=== PATIENT | male | born 1940 | race Caucasian/White ===

== ENCOUNTER 2017-01-24 08:51 | Inpatient (IN) | payer MEDICARE, OTHER ==
[2017-01-24] VITALS (58 sets, daily range): BP systolic 100–139; BP diastolic 51–99; PULSE 91–107; TEMP 97.6–103.1; O2SAT 75–97
[~2017-01-24] VITALS: Ht 175.3 cm; Wt 108.2 kg
[~2017-01-24 08:51] MED LIST: ACULAR LS 5 ML5 ML; ALEVE 220MG220 MG PO; ASPIRIN 81M81 MG/TA2 PO; CATAPRES 0.1MG0.1 MG PO; CLARITIN 1010 MG/TAB PO; CLARITIN PO; COLACE50 MG PO; COZAAR 25MG25 MG/TAB PO; GLUCOPHAGE500 MG/TAB PO; HCTZ 25MG TAB25 MG PO; MUCINEX 60600 MG/TA1 PO; OCUFLOX OPHTH DR5 ML; PRED FORTE 1 ML1 ML; TEARS NATURALE15 M1; TRIAMTERENE W/H1 CAP PO; VITAMIN D31000 I1 PO
[2017-01-24] MEDS ORDERED: ULTRAM 50MG TAB50 MG PO (08:54)
[2017-01-24 09:29] LABS: HEMATOCRIT 38.9 % (42.0-52.0); MEAN CELL VOLUME 92 fl (80.0-100.0); MEAN CORPUSCULAR HEMOGLOBIN 31 pg (27.0-31.0); MEAN CORPUSCULAR HGB CONC 33 g/dl (33.0-37.0); MEAN PLATELET VOLUME 9.4 fl (7.4-10.4); PLATELET COUNT 185 K/mm3 (130-400); RED BLOOD COUNT 4.24 M/mm3 (4.20-5.60); REDCELL DISTRIBUTION WIDTH-CV 13.4 % (11.5-14.5)
[2017-01-24 09:31] LABS: INR 1.3 (0.8-3.0); PROTHROMBIN TIME 14.1 SECONDS (9.7-12.8)
[2017-01-24 09:32] LABS: WHITE BLOOD COUNT 25.5 K/mm3 (4.8-10.8)
[2017-01-24 09:34] LABS: ADD PATHOLOGY DIFF REVIEW NO
[2017-01-24 09:41] LABS: ADJUSTED CALCIUM 9.1 mg/dL (8.4-10.2); ALBUMIN 4.1 gm/dL (3.5-5.0); BILIRUBIN,TOTAL 1.5 mg/dL (0.0-1.0); C-REACTIVE PROTEIN 3.8 mg/dL (0.0-0.9); CALCIUM 9.2 mg/dL (8.4-10.2); CREATININE, serum 1.03 mg/dL (0.66-1.25); POTASSIUM 4.1 mmol/L (3.4-5.0); TOTAL PROTEIN 8.1 gm/dL (6.4-8.2)
[2017-01-24 09:50] LABS: TROPONIN-I 0.017 ng/mL (0.000-0.034)
[2017-01-24 09:56] LABS: BAND 36 % (0-10); NEUTROPHILS 61 % (42.0-75.2); PLATELET ESTIMATE NORMAL (NORMAL); TOTAL CELLS COUNTED 101
[2017-01-24 23:33] LABS: PH 5 (5-8); SQUAMOUS EPITHELIAL None Seen /hpf; URINE APPEARANCE Clear; URINE BACTERIA None Seen /hpf; URINE BILIRUBIN Negative (NEGATIVE); URINE BLOOD 1+ (NEGATIVE); URINE COLOR Yellow; URINE GLUCOSE Negative (NEGATIVE); URINE KETONE 1+ (NEGATIVE); URINE UROBILINOGEN Negative (NEGATIVE); URINE WBC 0-2 /hpf
[2017-01-25] VITALS (1373 sets, daily range): BP systolic 95–132; BP diastolic 35–77; PULSE 77–98; TEMP 97.6–101.6; O2SAT 68–100
[2017-01-25 08:14] LABS: MEAN CELL VOLUME 93 fl (80.0-100.0); MEAN CORPUSCULAR HEMOGLOBIN 31 pg (27.0-31.0); MEAN CORPUSCULAR HGB CONC 33 g/dl (33.0-37.0); MEAN PLATELET VOLUME 9.4 fl (7.4-10.4); PLATELET COUNT 142 K/mm3 (130-400); RED BLOOD COUNT 3.94 M/mm3 (4.20-5.60); REDCELL DISTRIBUTION WIDTH-CV 13.7 % (11.5-14.5); WHITE BLOOD COUNT 19.8 K/mm3 (4.8-10.8)
[2017-01-25 08:19] LABS: ADD PATHOLOGY DIFF REVIEW NO; HEMATOCRIT 36.5 % (42.0-52.0)
[2017-01-25 08:20] LABS: INR 1.8 (0.8-3.0); PROTHROMBIN TIME 19.9 SECONDS (9.7-12.8)
[2017-01-25 08:23] LABS: PARTIAL THROMBOPLASTIN TIME 35.4 SECONDS (26.0-37.0)
[2017-01-25 08:30] LABS: ADJUSTED CALCIUM 8.8 mg/dL (8.4-10.2); CREATININE, serum 0.84 mg/dL (0.66-1.25); POTASSIUM 3.4 mmol/L (3.4-5.0); TOTAL PROTEIN 6.7 gm/dL (6.4-8.2)
[2017-01-25 08:58] LABS: C-REACTIVE PROTEIN 23.9 mg/dL (0.0-0.9)
[2017-01-25 10:18] LABS: BAND 20 % (0-10); BASOPHIL 1 % (0-2); NEUTROPHILS 70 % (42.0-75.2); PLATELET ESTIMATE NORMAL (NORMAL); TOTAL CELLS COUNTED 100
[2017-01-25 10:20] LABS: ERYTHROCYTE SEDIMENTATION RATE 28 mm/hr (0-30)
[2017-01-26] VITALS (762 sets, daily range): BP systolic 108–146; BP diastolic 49–92; PULSE 79–93; TEMP 98.4–100.6; O2SAT 84–100
[2017-01-26 06:09] LABS: ADD PATHOLOGY DIFF REVIEW NO; HEMOGLOBIN 9.7 g/dl (13.5-18.0); MEAN CELL VOLUME 94 fl (80.0-100.0); MEAN CORPUSCULAR HEMOGLOBIN 30 pg (27.0-31.0); MEAN CORPUSCULAR HGB CONC 32 g/dl (33.0-37.0); MEAN PLATELET VOLUME 9.8 fl (7.4-10.4); PLATELET COUNT 126 K/mm3 (130-400); RED BLOOD COUNT 3.21 M/mm3 (4.20-5.60); REDCELL DISTRIBUTION WIDTH-CV 13.7 % (11.5-14.5); WHITE BLOOD COUNT 13.1 K/mm3 (4.8-10.8)
[2017-01-26 06:36] LABS: INR 1.3 (0.8-3.0)
[2017-01-26 06:38] LABS: ADJUSTED CALCIUM 8.2 mg/dL (8.4-10.2); ALBUMIN 2.3 gm/dL (3.5-5.0); BILIRUBIN,TOTAL 0.8 mg/dL (0.0-1.0); CALCIUM 6.8 mg/dL (8.4-10.2); CREATININE, serum 0.68 mg/dL (0.66-1.25); TOTAL PROTEIN 5.3 gm/dL (6.4-8.2)
[2017-01-26 07:21] LABS: C-REACTIVE PROTEIN 17.4 mg/dL (0.0-0.9)
[2017-01-26 07:38] LABS: BAND 18 % (0-10); NEUTROPHILS 72 % (42.0-75.2); PLATELET ESTIMATE DECREASED (NORMAL); TOTAL CELLS COUNTED 100
[2017-01-27 03:25] VITALS: BP 113/53; PULSE 76; TEMP 97.6
[2017-01-27 07:34] LABS: MEAN CELL VOLUME 93 fl (80.0-100.0); MEAN CORPUSCULAR HGB CONC 33 g/dl (33.0-37.0); MEAN PLATELET VOLUME 10.3 fl (7.4-10.4); PLATELET COUNT 137 K/mm3 (130-400); RED BLOOD COUNT 3.33 M/mm3 (4.20-5.60); REDCELL DISTRIBUTION WIDTH-CV 13.9 % (11.5-14.5); WHITE BLOOD COUNT 10.4 K/mm3 (4.8-10.8)
[2017-01-27 07:48] VITALS: BP 119/59; PULSE 76; TEMP 97.6
[2017-01-27 07:48] LABS: INR 1.2 (0.8-3.0); PROTHROMBIN TIME 13.5 SECONDS (9.7-12.8)
[2017-01-27 07:51] LABS: PARTIAL THROMBOPLASTIN TIME 28.6 SECONDS (26.0-37.0)
[2017-01-27 08:02] LABS: ADD PATHOLOGY DIFF REVIEW NO; HEMOGLOBIN 10.1 g/dl (13.5-18.0); MEAN CORPUSCULAR HEMOGLOBIN 30 pg (27.0-31.0)
[2017-01-27 08:53] LABS: ADJUSTED CALCIUM 8.7 mg/dL (8.4-10.2); ALBUMIN 2.6 gm/dL (3.5-5.0); CALCIUM 7.6 mg/dL (8.4-10.2); CREATININE, serum 0.7 mg/dL (0.66-1.25); POTASSIUM 3.3 mmol/L (3.4-5.0); TOTAL PROTEIN 5.9 gm/dL (6.4-8.2)
[2017-01-27 11:46] VITALS: BP 109/51; PULSE 69; TEMP 98.7
[2017-01-27 12:06] LABS: BAND 17 % (0-10); NEUTROPHILS 67 % (42.0-75.2); PLATELET ESTIMATE NORMAL (NORMAL)
[2017-01-27 12:10] LABS: DOHLE BODIES PRESENT; EOSINOPHIL 2 % (0-4); TOTAL CELLS COUNTED 100; TOXIC GRANULATION PRESENT
[2017-01-27 16:34] VITALS: BP 111/54; PULSE 75; TEMP 98
[2017-01-27 21:27] VITALS: BP 103/51; PULSE 89; TEMP 99.2
[2017-01-27 23:47] VITALS: BP 103/52; PULSE 80; TEMP 100.5
[2017-01-28 03:42] VITALS: BP 111/54; PULSE 78; TEMP 98.4
[2017-01-28 09:06] VITALS: BP 116/55; PULSE 81; TEMP 98
[2017-01-28 09:56] LABS: BASO % 0.4 % (0.0-2.0); EOS # 0.5 (0.0-0.7); EOS % 4.8 % (0-4.0); GRAN % 79.7 % (42.2-75.2); LYMPH # 0.8 (1.2-3.4); LYMPH % 7.8 % (20.0-51.0); MEAN CELL VOLUME 94 fl (80.0-100.0); MEAN CORPUSCULAR HGB CONC 32 g/dl (33.0-37.0); MEAN PLATELET VOLUME 9.8 fl (7.4-10.4); MONO # 0.7 (0.1-0.6); MONO % 6.8 % (1.7-9.3); PLATELET COUNT 161 K/mm3 (130-400); RED BLOOD COUNT 3.38 M/mm3 (4.20-5.60); REDCELL DISTRIBUTION WIDTH-CV 14.4 % (11.5-14.5); WHITE BLOOD COUNT 10.1 K/mm3 (4.8-10.8)
[2017-01-28 10:05] LABS: CALCIUM 7.5 mg/dL (8.4-10.2); CREATININE, serum 0.69 mg/dL (0.66-1.25); POTASSIUM 3.5 mmol/L (3.4-5.0)
[2017-01-28 10:15] LABS: HEMATOCRIT 31.7 % (42.0-52.0); HEMOGLOBIN 10.2 g/dl (13.5-18.0); MEAN CORPUSCULAR HEMOGLOBIN 30 pg (27.0-31.0)
[2017-01-28 12:12] VITALS: BP 128/88; PULSE 69; TEMP 98
[2017-01-28 16:02] VITALS: BP 137/55; PULSE 79; TEMP 98.6
[2017-01-28 19:50] VITALS: BP 117/53; PULSE 83; TEMP 98.5
[2017-01-28 23:17] VITALS: BP 128/59; PULSE 81; TEMP 98.4
[2017-01-29 04:06] VITALS: BP 130/66; PULSE 84; TEMP 98.5
[2017-01-29 08:58] VITALS: BP 126/61; PULSE 86; TEMP 100.4
[2017-01-29] MEDS ORDERED: LEVAQUIN 5500 MG/TA1 PO (12:08)
[2017-01-29] MEDS ORDERED: HCTZ 25MG TAB25 MG PO (12:09)
[2017-01-29] MEDS ORDERED: LASIX 20MG TABL20 MG PO (12:19)
[2017-01-29] MEDS ORDERED: KLOR-CON M2020 MEQ PO ×2 (12:21→12:23)
[2017-01-29 13:07] VITALS: BP 134/66; PULSE 76; TEMP 98.7
== END 2017-01-29 16:31 | disposition home or self-care (01) | DRG 871 ==
LOC: COL.ER 08:51 → SURG 10:14 → IMCU 23:00 → MEDICAL 01-26 13:38
PROVIDERS: Emergency Medicine; Family Medicine; Internal Medicine; Nurse Practitioner Family
PROC: 02HV33Z Insertion of Infusion Device into Superior Vena Cava, Percutaneous Approach (ICD-10-PCS; principal; 2017-01-25)
DX: A40.0 Sepsis due to streptococcus, group A (principal); G93.41 Metabolic encephalopathy; L03.116 Cellulitis of left lower limb; E44.0 Moderate protein-calorie malnutrition; B95.0 Streptococcus, group A, as the cause of diseases classified elsewhere; I89.1 Lymphangitis; I10 Essential (primary) hypertension; E11.9 Type 2 diabetes mellitus without complications; I73.9 Peripheral vascular disease, unspecified
CPT/HCPCS: 99223-AI; 99232-AI; 99233-AI; 99239; A4315; C1751; J0696; J1644; J1650; J1720; J1815; J1940; J3370; J7030; J7050

== ENCOUNTER → 2017-02-01 | Outpatient (CLI) | payer MEDICARE, OTHER ==
[~2017-02-01] MED LIST changes: +KLOR-CON M2020 MEQ PO; +LASIX 20MG TABL20 MG PO; +LEVAQUIN 5500 MG/TA1 PO; +ULTRAM 50MG TAB50 MG PO
== END ==
LOC: WCC 09:45
DX: L03.116 Cellulitis of left lower limb (principal); I87.2 Venous insufficiency (chronic) (peripheral); L97.229 Non-pressure chronic ulcer of left calf with unspecified severity
CPT/HCPCS: 13919; 13973; A6199; G0463

== ENCOUNTER 2017-02-06 07:08 | Emergency (ER) | payer MEDICARE, OTHER ==
[~2017-02-06] VITALS: Ht 162.6 cm; Wt 97.3 kg
[2017-02-06 07:11] VITALS: TEMP 99
[2017-02-06 07:45] LABS: BASO # 0.1 (0.0-0.2); BASO % 0.3 % (0.0-2.0); EOS # 0.1 (0.0-0.7); EOS % 0.4 % (0-4.0); GRAN # 12.9 (1.4-6.5); GRAN % 87.8 % (42.2-75.2); LYMPH # 0.8 (1.2-3.4); LYMPH % 5.1 % (20.0-51.0); MEAN CELL VOLUME 92 fl (80.0-100.0); MEAN CORPUSCULAR HGB CONC 32 g/dl (33.0-37.0); MEAN PLATELET VOLUME 8.9 fl (7.4-10.4); MONO # 0.8 (0.1-0.6); MONO % 5.7 % (1.7-9.3); PLATELET COUNT 380 K/mm3 (130-400); RED BLOOD COUNT 3.82 M/mm3 (4.20-5.60); REDCELL DISTRIBUTION WIDTH-CV 12.9 % (11.5-14.5); WHITE BLOOD COUNT 14.6 K/mm3 (4.8-10.8)
[2017-02-06 07:50] LABS: HEMOGLOBIN 11.3 g/dl (13.5-18.0); MEAN CORPUSCULAR HEMOGLOBIN 30 pg (27.0-31.0)
[2017-02-06 07:58] LABS: ADJUSTED CALCIUM 9.5 mg/dL (8.4-10.2); ALBUMIN 3.6 gm/dL (3.5-5.0); BILIRUBIN,TOTAL 1.2 mg/dL (0.0-1.0); CALCIUM 9.2 mg/dL (8.4-10.2); CREATININE, serum 1.08 mg/dL (0.66-1.25); POTASSIUM 3.7 mmol/L (3.4-5.0); TOTAL PROTEIN 8.2 gm/dL (6.4-8.2)
[2017-02-06 09:40] VITALS: BP 141/78; PULSE 94
== END 2017-02-06 09:42 | disposition home or self-care (01) ==
LOC: COL.ER 07:08
PROVIDERS: Physician Assistant
DX: S01.312A Laceration without foreign body of left ear, initial encounter (principal); E86.0 Dehydration; E11.9 Type 2 diabetes mellitus without complications; I10 Essential (primary) hypertension; W18.39XA Other fall on same level, initial encounter; Y92.003 Bedroom of unspecified non-institutional (private) residence as the place of occurrence of the external cause
CPT/HCPCS: J7030

== ENCOUNTER → 2017-02-08 | Outpatient (CLI) | payer MEDICARE, OTHER | LOC: WCC 10:01 | DX: I87.8 Other specified disorders of veins (principal); L97.829 Non-pressure chronic ulcer of other part of left lower leg with unspecified severity; L03.90 Cellulitis, unspecified | CPT/HCPCS: 13919; G0463 ==

== ENCOUNTER → 2017-02-15 | Outpatient (CLI) | payer MEDICARE, OTHER | LOC: WCC 10:54 | DX: I87.8 Other specified disorders of veins (principal); L03.116 Cellulitis of left lower limb | CPT/HCPCS: 13919; G0463 ==

== ENCOUNTER → 2017-02-22 | Outpatient (CLI) | payer MEDICARE, OTHER | LOC: WCC 10:59 | DX: I87.2 Venous insufficiency (chronic) (peripheral) (principal); L03.90 Cellulitis, unspecified | CPT/HCPCS: G0463 ==

== ENCOUNTER 2017-02-24 09:48 | Outpatient (RCR) | payer MEDICARE, OTHER | END 2017-04-04 16:53 | disposition home or self-care (01) | LOC: WSPT 09:48 | DX: I83.028 Varicose veins of left lower extremity with ulcer other part of lower leg (principal) | CPT/HCPCS: G8978-GP; G8979-GP; G8980-GP ==

== ENCOUNTER → 2017-03-15 | Outpatient (CLI) | payer MEDICARE, OTHER ==
[~2017-03-15] VITALS: Ht 162.6 cm; Wt 97.3 kg
[2017-03-15 13:11] VITALS: BP 145/86; PULSE 71
[2017-03-15 14:17] VITALS: BP 178/106; PULSE 75
[2017-03-15 15:06] VITALS: BP 164/85
== END ==
LOC: COL.RAD 12:45
DX: M54.42 Lumbago with sciatica, left side (principal); G89.29 Other chronic pain
CPT/HCPCS: J3301

== ENCOUNTER 2018-05-15 09:25 | Inpatient (IN) | payer MEDICARE, OTHER ==
[~2018-05-15] VITALS: Ht 175.3 cm; Wt 105.0 kg
[2018-05-15 10:08] LABS: BASO % 0.3 % (0.0-2.0); EOS # 0.1 (0.0-0.7); EOS % 1.3 % (0-4.0); GRAN # 8.7 (1.4-6.5); GRAN % 83.9 % (42.2-75.2); HEMATOCRIT 37.1 % (42.0-52.0); HEMOGLOBIN 12.2 g/dl (13.5-18.0); LYMPH # 0.9 (1.2-3.4); LYMPH % 8.5 % (20.0-51.0); MEAN CELL VOLUME 92 fl (80.0-100.0); MEAN CORPUSCULAR HEMOGLOBIN 30 pg (27.0-31.0); MEAN CORPUSCULAR HGB CONC 33 g/dl (33.0-37.0); MEAN PLATELET VOLUME 9.5 fl (7.4-10.4); MONO # 0.6 (0.1-0.6); MONO % 5.6 % (1.7-9.3); PLATELET COUNT 166 K/mm3 (130-400); RED BLOOD COUNT 4.04 M/mm3 (4.20-5.60); REDCELL DISTRIBUTION WIDTH-CV 13.9 % (11.5-14.5)
[2018-05-15 10:20] LABS: ALBUMIN 3.8 gm/dL (3.5-5.0); BILIRUBIN,TOTAL 0.8 mg/dL (0.0-1.0); C-REACTIVE PROTEIN 7.1 mg/dL (0.0-0.9); CALCIUM 8.8 mg/dL (8.4-10.2); CREATININE, serum 1.31 mg/dL (0.66-1.25); POTASSIUM 4.2 mmol/L (3.4-5.0); TOTAL PROTEIN 7.5 gm/dL (6.4-8.2)
[2018-05-15] MEDS ORDERED: VITAMIN D31000 I1 PO (10:27)
[2018-05-15] MEDS ORDERED: ASPIRIN 81M81 MG/TA2 PO (10:27)
[2018-05-15] MEDS ORDERED: HCTZ 25MG TAB25 MG PO (10:28)
[2018-05-15] MEDS ORDERED: MUCINEX DM 60 M1 TER PO (10:28)
[2018-05-15] MEDS ORDERED: LASIX 40MG TABL40 MG PO (10:28)
[2018-05-15] MEDS ORDERED: MICROZIDE12.5 MG PO (10:29)
[2018-05-15] MEDS ORDERED: CLARITIN 1010 MG/TAB PO (10:29)
[2018-05-15] MEDS ORDERED: COZAAR 50MG50 MG/TAB PO (10:29)
[2018-05-15] MEDS ORDERED: MOBIC 7.5MG7.5 MG PO (10:30)
[2018-05-15] MEDS ORDERED: GLUCOPHAGE XR500 M1 PO (10:31)
[2018-05-15] MEDS ORDERED: NAPROSYN 2250 MG/TAB PO (10:33)
[2018-05-15] MEDS ORDERED: K-DUR20 MEQ PO (10:33)
[2018-05-15] MEDS ORDERED: B-121000 MCG PO (10:34)
[2018-05-15] MEDS ORDERED: BACTRIM DS 8001 TAB PO (10:50)
[2018-05-15] MEDS ORDERED: ULTRAM 50MG TAB50 MG PO (10:50)
[2018-05-15 11:00] LABS: TROPONIN-I 0.038 ng/mL (0.000-0.034)
[2018-05-15 12:17] LABS: COLLECTION METHOD CLEAN CATCH
[2018-05-15 12:30] LABS: MUCOUS Present /lpf; PH 5 (5-8); SQUAMOUS EPITHELIAL None Seen /hpf; URINE APPEARANCE Clear; URINE BACTERIA None Seen /hpf; URINE BILIRUBIN Negative (NEGATIVE); URINE BLOOD 1+ (NEGATIVE); URINE COLOR Yellow; URINE GLUCOSE Negative (NEGATIVE); URINE KETONE Negative (NEGATIVE); URINE LEUKOCYTE ESTERASE Negative (NEGATIVE); URINE NITRATE Negative (NEGATIVE); URINE PROTEIN(semi-quant) 1+ (NEGATIVE); URINE RBC 0-2 /hpf; URINE UROBILINOGEN Negative (NEGATIVE)
[2018-05-15 14:04] VITALS: BP 101/48; PULSE 77; TEMP 98.5
[2018-05-15 19:00] VITALS: BP 121/57; PULSE 82; TEMP 98.9
[2018-05-15 23:34] VITALS: BP 104/47; PULSE 85; TEMP 99.4
[2018-05-16 03:50] VITALS: BP 103/50; PULSE 86; TEMP 99.6
[2018-05-16 07:32] LABS: BASO % 0.2 % (0.0-2.0); EOS # 0.4 (0.0-0.7); EOS % 4.6 % (0-4.0); GRAN # 6.5 (1.4-6.5); GRAN % 75.6 % (42.2-75.2); HEMOGLOBIN 10.9 g/dl (13.5-18.0); LYMPH # 1.1 (1.2-3.4); LYMPH % 12.3 % (20.0-51.0); MEAN CELL VOLUME 94 fl (80.0-100.0); MEAN CORPUSCULAR HEMOGLOBIN 30 pg (27.0-31.0); MEAN CORPUSCULAR HGB CONC 32 g/dl (33.0-37.0); MEAN PLATELET VOLUME 9.9 fl (7.4-10.4); MONO # 0.6 (0.1-0.6); MONO % 7.1 % (1.7-9.3); PLATELET COUNT 176 K/mm3 (130-400); RED BLOOD COUNT 3.67 M/mm3 (4.20-5.60); REDCELL DISTRIBUTION WIDTH-CV 14.3 % (11.5-14.5)
[2018-05-16 07:33] LABS: HEMATOCRIT 34.4 % (42.0-52.0)
[2018-05-16 08:20] VITALS: BP 109/53; PULSE 81; TEMP 99.2
[2018-05-16 09:05] LABS: CALCIUM 7.9 mg/dL (8.4-10.2); CREATININE, serum 0.95 mg/dL (0.66-1.25); POTASSIUM 4.4 mmol/L (3.4-5.0)
[2018-05-16 12:25] VITALS: BP 108/51; PULSE 84; TEMP 98.3
[2018-05-16 16:34] VITALS: BP 106/49; PULSE 80; TEMP 98.4
[2018-05-16 19:08] VITALS: BP 129/59; PULSE 84; TEMP 99.5
[2018-05-16 23:40] VITALS: BP 106/54; PULSE 76; TEMP 100.2
[2018-05-17 03:21] VITALS: BP 119/62; PULSE 93; TEMP 98.7
[2018-05-17 06:46] LABS: BASO % 0.2 % (0.0-2.0); EOS # 0.4 (0.0-0.7); EOS % 4.6 % (0-4.0); GRAN # 6.1 (1.4-6.5); GRAN % 69.9 % (42.2-75.2); HEMOGLOBIN 10.9 g/dl (13.5-18.0); LYMPH # 1.5 (1.2-3.4); LYMPH % 16.6 % (20.0-51.0); MEAN CELL VOLUME 94 fl (80.0-100.0); MEAN CORPUSCULAR HEMOGLOBIN 31 pg (27.0-31.0); MEAN CORPUSCULAR HGB CONC 33 g/dl (33.0-37.0); MEAN PLATELET VOLUME 9.5 fl (7.4-10.4); MONO # 0.7 (0.1-0.6); MONO % 8.4 % (1.7-9.3); PLATELET COUNT 187 K/mm3 (130-400); RED BLOOD COUNT 3.56 M/mm3 (4.20-5.60); REDCELL DISTRIBUTION WIDTH-CV 14.3 % (11.5-14.5)
[2018-05-17 06:49] LABS: HEMATOCRIT 33.4 % (42.0-52.0)
[2018-05-17 06:54] LABS: ALBUMIN 2.9 gm/dL (3.5-5.0); BILIRUBIN,TOTAL 0.5 mg/dL (0.0-1.0); CALCIUM 8.1 mg/dL (8.4-10.2); CREATININE, serum 0.94 mg/dL (0.66-1.25); POTASSIUM 4.2 mmol/L (3.4-5.0); TOTAL PROTEIN 6.2 gm/dL (6.4-8.2)
[2018-05-17 07:38] VITALS: BP 98/52; PULSE 78; TEMP 98.4
[2018-05-17 07:52] LABS: MAGNESIUM 1.9 mg/dL (1.6-2.3)
[2018-05-17 08:05] LABS: TROPONIN-I 0.03 ng/mL (0.000-0.034)
[2018-05-17 11:05] VITALS: BP 92/49; PULSE 54; TEMP 98.1
[2018-05-17 15:11] VITALS: BP 95/45; PULSE 80; TEMP 97.8
[2018-05-17 19:25] VITALS: BP 115/49; PULSE 87; TEMP 98.7
[2018-05-17 23:36] VITALS: BP 114/53; PULSE 84; TEMP 99.4
[2018-05-18] VITALS (7 sets, daily range): BP systolic 94–170; BP diastolic 44–88; PULSE 61–91; TEMP 99–99.7
[2018-05-18 06:37] LABS: BASO % 0.3 % (0.0-2.0); EOS # 0.4 (0.0-0.7); EOS % 4.3 % (0-4.0); GRAN # 6.2 (1.4-6.5); GRAN % 67.8 % (42.2-75.2); HEMOGLOBIN 11.6 g/dl (13.5-18.0); LYMPH # 1.7 (1.2-3.4); LYMPH % 18.5 % (20.0-51.0); MEAN CELL VOLUME 93 fl (80.0-100.0); MEAN CORPUSCULAR HEMOGLOBIN 30 pg (27.0-31.0); MEAN CORPUSCULAR HGB CONC 32 g/dl (33.0-37.0); MEAN PLATELET VOLUME 9.1 fl (7.4-10.4); MONO # 0.8 (0.1-0.6); MONO % 8.8 % (1.7-9.3); PLATELET COUNT 229 K/mm3 (130-400); RED BLOOD COUNT 3.84 M/mm3 (4.20-5.60); REDCELL DISTRIBUTION WIDTH-CV 14.1 % (11.5-14.5)
[2018-05-18 06:40] LABS: HEMATOCRIT 35.8 % (42.0-52.0)
[2018-05-18 06:52] LABS: CALCIUM 8.4 mg/dL (8.4-10.2); CREATININE, serum 0.91 mg/dL (0.66-1.25); POTASSIUM 4.2 mmol/L (3.4-5.0)
[2018-05-18] MEDS ORDERED: LEVAQUIN 750MG750 M1 PO (11:36)
[2018-05-18] MEDS ORDERED: ELIQUIS 5MG PO (11:39)
[2018-05-18] MEDS ORDERED: ATARAX 25MG25 MG/TAB PO (11:50)
[2018-05-18] MEDS ORDERED: LASIX 20MG TABL20 MG PO (11:51)
[2018-05-18] MEDS ORDERED: K-TAB10 PO (11:51)
[2018-05-18] MEDS ORDERED: LAMISIL250 M1 PO (11:53)
== END 2018-05-18 15:23 | disposition home or self-care (01) | DRG 602 ==
LOC: COL.ER 09:25 → MEDICAL 11:59
PROVIDERS: Emergency Medicine; Hospitalist; Internal Medicine Cardiovascular Disease; Physician Assistant
DX: L03.116 Cellulitis of left lower limb (principal); J18.9 Pneumonia, unspecified organism; N17.9 Acute kidney failure, unspecified; I87.8 Other specified disorders of veins; T37.0X5A Adverse effect of sulfonamides, initial encounter; B35.1 Tinea unguium; R73.03 Prediabetes; I48.91 Unspecified atrial fibrillation; I10 Essential (primary) hypertension; E66.9 Obesity, unspecified
CPT/HCPCS: 99223-AI; 99232-AI; 99239; A9502; J1644; J1956; J2405; J2785; J7030

== ENCOUNTER → 2018-10-01 | Outpatient (CLI) | payer MEDICARE, OTHER ==
[~2018-10-01] MED LIST changes: +ATARAX 25MG25 MG/TAB PO; +B-121000 MCG PO; +BACTRIM DS 8001 TAB PO; +COZAAR 50MG50 MG/TAB PO; +ELIQUIS 5MG PO; +GLUCOPHAGE XR500 M1 PO; +K-DUR20 MEQ PO; +K-TAB10 PO; +LAMISIL250 M1 PO; +LASIX 40MG TABL40 MG PO; +LEVAQUIN 750MG750 M1 PO; +MICROZIDE12.5 MG PO; +MOBIC 7.5MG7.5 MG PO; +MUCINEX DM 60 M1 TER PO; +NAPROSYN 2250 MG/TAB PO
== END ==
LOC: COL.RAD 09:02
DX: Z01.812 Encounter for preprocedural laboratory examination (principal); R60.0 Localized edema
CPT/HCPCS: A9585

== ENCOUNTER 2019-01-31 10:12 | Day surgery (SDC) | payer MEDICARE, OTHER ==
[~2019-01-31] VITALS: Ht 160 cm; Wt 96.8 kg
[2019-01-31 11:13] VITALS: BP 147/79; PULSE 73; TEMP 97.1
[2019-01-31 11:27] LABS: ARTERIAL BLD GAS O2 SATURATION 92.5 % (92-100); ARTERIAL BLD GAS TCO2 CT 27.1; ARTERIAL BLOOD GAS BASE EXCESS 1.2 (-2-2); ARTERIAL BLOOD GAS HCO3 25.8 meq/L (22-26); ARTERIAL BLOOD GAS PO2 66.6 mmHg (80-100); ARTERIAL BLOOD GAS pH 7.42 (7.35-7.45)
[2019-01-31] MEDS ORDERED: ELIQUIS 5MG PO (12:17)
[2019-01-31] MEDS ORDERED: TOPROL XL 25MG25 MG PO (12:23)
[2019-01-31 14:10] VITALS: BP 136/58; PULSE 68; TEMP 97
--- NOTE | 2019-01-31 14:10 | NUR ---
TO RM 6 PER CART FROM OR. AWAKENS TO ANSWER QUESTIONS AND FALLS BACK TO SLEEP. INCISION CLEAN DRY INTACT. DENIES PAIN OR DISCOMFORT DENIES NAUSEA OR VOMITING.
[2019-01-31 14:25] VITALS: BP 130/39; PULSE 59
--- NOTE | 2019-01-31 14:25 | NUR ---
MORE AWAKE AND TALKING TO STAFF. SIGNIFICANT OTHER- KATHLEEN AT BEDSIDE. RECEIVED WATER
[2019-01-31] MEDS ORDERED: NORCO 325 MG-51 TAB PO (14:29)
[2019-01-31] MEDS ORDERED: MOTRIN 600600 MG/TAB PO (14:30)
[2019-01-31] MEDS ORDERED: COLACE 100100 MG/CAP PO (14:30)
[2019-01-31 14:55] VITALS: BP 129/75; PULSE 54
--- NOTE | 2019-01-31 14:55 | NUR ---
ACCUCHECK 97 RECEIVED APPLE SAUCE AND ATE 100%
--- NOTE | 2019-01-31 15:10 | NUR ---
UP AMBULATED TO BATHROOM WITH ASSIST AND WALKER. VOIDED AND TOLERATED WELL.
--- NOTE | 2019-01-31 15:15 | NUR ---
RECEIVED DISCHARGE INSTRUCTIONS AND VERBALIZED UNDERSTANDING. DISCONTINUED IV AND INT- COVERED WITH BAND AIDE.
--- NOTE | 2019-01-31 15:35 | NUR ---
DISCHARGED PER WC BY NURSING STAFF TO PRIVATE CAR IN CARE OF KATHLEEN.
== END 2019-01-31 15:55 | disposition home or self-care (01) ==
LOC: SDCO 10:12
PROVIDERS: Nurse Anesthetist, Certified Registered
DX: K40.90 Unilateral inguinal hernia, without obstruction or gangrene, not specified as recurrent (principal); G47.33 Obstructive sleep apnea (adult) (pediatric); E11.9 Type 2 diabetes mellitus without complications; Z79.84 Long term (current) use of oral hypoglycemic drugs; Z79.899 Other long term (current) drug therapy; I10 Essential (primary) hypertension; I87.2 Venous insufficiency (chronic) (peripheral); M41.9 Scoliosis, unspecified; I34.0 Nonrheumatic mitral (valve) insufficiency; I25.2 Old myocardial infarction; Z80.3 Family history of malignant neoplasm of breast; E66.9 Obesity, unspecified; Z88.2 Allergy status to sulfonamides
CPT/HCPCS: C1781; J0690; J2704; J3010

== ENCOUNTER → 2019-03-18 | Outpatient (CLI) | payer MEDICARE, OTHER ==
[~2019-03-18] MED LIST changes: +COLACE 100100 MG/CAP PO; +MOTRIN 600600 MG/TAB PO; +NORCO 325 MG-51 TAB PO; +TOPROL XL 25MG25 MG PO
== END ==
LOC: COL.PUL 02-12 10:00
DX: R06.02 Shortness of breath (principal)

== ENCOUNTER → 2019-05-27 | Outpatient (CLI) | payer MEDICARE, OTHER | LOC: COL.RAD 11:16 | DX: G30.1 Alzheimer's disease with late onset (principal); F02.80 Dementia in other diseases classified elsewhere, unspecified severity, without behavioral disturbance, psychotic disturbance, mood disturbance, and anxiety ==

== ENCOUNTER → 2019-07-19 | Outpatient (CLI) | payer MEDICARE, OTHER | LOC: COL.RAD 11:30 | DX: M79.89 Other specified soft tissue disorders (principal); R59.0 Localized enlarged lymph nodes ==

== ENCOUNTER 2019-07-31 19:20 | Emergency (ER) | payer MEDICARE, OTHER ==
[~2019-07-31] VITALS: Ht 162.6 cm; Wt 100.0 kg
[2019-07-31 19:28] VITALS: BP 109/55; TEMP 98.6
[2019-07-31] MEDS ORDERED: PHARMASSURE CHE30 MG PO (19:58)
[2019-07-31 20:36] LABS: ALBUMIN 3.6 gm/dL (3.5-5.0); BILIRUBIN,TOTAL 0.7 mg/dL (0.0-1.0); CALCIUM 8.7 mg/dL (8.4-10.2); CREATININE, serum 1.36 (0.66-1.25); POTASSIUM 4.2 mmol/L (3.4-5.0); TOTAL PROTEIN 6.6 gm/dL (6.4-8.2)
[2019-07-31 20:39] LABS: BASO # 0.1 (0.0-0.2); BASO % 0.5 % (0.0-2.0); EOS # 0.2 (0.0-0.7); EOS % 1.9 % (0-4.0); GRAN # 7.8 (1.4-6.5); GRAN % 75.2 % (42.2-75.2); LYMPH # 1.4 (1.2-3.4); LYMPH % 13.3 % (20.0-51.0); MEAN CELL VOLUME 97 fl (80.0-100.0); MEAN CORPUSCULAR HGB CONC 31 g/dl (33.0-37.0); MEAN PLATELET VOLUME 9.3 fl (7.4-10.4); MONO # 0.9 (0.1-0.6); MONO % 8.8 % (1.7-9.3); PLATELET COUNT 207 K/mm3 (130-400); RED BLOOD COUNT 3.13 M/mm3 (4.20-5.60); REDCELL DISTRIBUTION WIDTH-CV 13.2 % (11.5-14.5)
[2019-07-31 20:42] LABS: HEMATOCRIT 30.4 % (42.0-52.0); HEMOGLOBIN 9.5 g/dl (13.5-18.0); MEAN CORPUSCULAR HEMOGLOBIN 30 pg (27.0-31.0)
[2019-07-31 20:52] LABS: INR 1.3 (0.8-3.0); PROTHROMBIN TIME 15.8 SECONDS (9.7-12.8)
[2019-07-31 21:45] VITALS: PULSE 82
== END 2019-07-31 21:45 | disposition home or self-care (01) ==
LOC: COL.ER 19:20
PROVIDERS: Family Medicine
DX: S80.02XA Contusion of left knee, initial encounter (principal); I89.0 Lymphedema, not elsewhere classified; I10 Essential (primary) hypertension; I48.91 Unspecified atrial fibrillation; Z79.01 Long term (current) use of anticoagulants; Z79.84 Long term (current) use of oral hypoglycemic drugs; W01.198A Fall on same level from slipping, tripping and stumbling with subsequent striking against other object, initial encounter

== ENCOUNTER 2019-08-12 09:28 | Inpatient (IN) | payer MEDICARE, OTHER ==
[~2019-08-12] VITALS: Ht 162.6 cm; Wt 102.0 kg
[2019-08-12] VITALS (14 sets, daily range): BP systolic 106–156; BP diastolic 44–106; PULSE 64–85; TEMP 97.9–98.4
[~2019-08-12 09:28] MED LIST changes: +PHARMASSURE CHE30 MG PO
[2019-08-12 10:04] LABS: MEAN CELL VOLUME 97 fl (80.0-100.0); MEAN CORPUSCULAR HGB CONC 31 g/dl (33.0-37.0); MEAN PLATELET VOLUME 8.3 fl (7.4-10.4); PLATELET COUNT 387 K/mm3 (130-400); RED BLOOD COUNT 3.01 M/mm3 (4.20-5.60); REDCELL DISTRIBUTION WIDTH-CV 13.2 % (11.5-14.5)
[2019-08-12 10:06] LABS: HEMATOCRIT 29.2 % (42.0-52.0); HEMOGLOBIN 9.1 g/dl (13.5-18.0); MEAN CORPUSCULAR HEMOGLOBIN 30 pg (27.0-31.0)
[2019-08-12 10:12] LABS: INR 1.2 (0.8-3.0); PROTHROMBIN TIME 13.6 SECONDS (9.7-12.8)
[2019-08-12 10:13] LABS: CALCIUM 8.6 mg/dL (8.4-10.2); CREATININE, serum 0.84 (0.66-1.25); POTASSIUM 4.1 mmol/L (3.4-5.0)
[2019-08-12] MEDS ORDERED: K-TAB10 PO (10:20)
[2019-08-12] MEDS ORDERED: CLEOCIN HCL300 MG PO (10:21)
[2019-08-13 04:14] VITALS: BP 116/57; PULSE 70; TEMP 98.6
[2019-08-13 07:18] LABS: BASO % 0.4 % (0.0-2.0); EOS # 0.3 (0.0-0.7); GRAN # 6.4 (1.4-6.5); GRAN % 76.1 % (42.2-75.2); LYMPH # 1.1 (1.2-3.4); LYMPH % 12.5 % (20.0-51.0); MEAN CELL VOLUME 97 fl (80.0-100.0); MEAN CORPUSCULAR HGB CONC 31 g/dl (33.0-37.0); MEAN PLATELET VOLUME 8.5 fl (7.4-10.4); MONO # 0.6 (0.1-0.6); MONO % 7.6 % (1.7-9.3); PLATELET COUNT 355 K/mm3 (130-400); RED BLOOD COUNT 2.95 M/mm3 (4.20-5.60); REDCELL DISTRIBUTION WIDTH-CV 13.2 % (11.5-14.5)
[2019-08-13 07:22] VITALS: BP 118/52; PULSE 70; TEMP 98.7
[2019-08-13 07:27] LABS: HEMATOCRIT 28.6 % (42.0-52.0); HEMOGLOBIN 8.8 g/dl (13.5-18.0); MEAN CORPUSCULAR HEMOGLOBIN 30 pg (27.0-31.0)
[2019-08-13 07:34] LABS: ALBUMIN 3.3 gm/dL (3.5-5.0); BILIRUBIN,TOTAL 0.6 mg/dL (0.0-1.0); CALCIUM 8.4 mg/dL (8.4-10.2); CREATININE, serum 0.7 (0.66-1.25); MAGNESIUM 2.2 mg/dL (1.6-2.3); POTASSIUM 4.3 mmol/L (3.4-5.0); TOTAL PROTEIN 6.6 gm/dL (6.4-8.2)
[2019-08-13 11:17] VITALS: BP 126/51; PULSE 72; TEMP 98
[2019-08-13 15:27] VITALS: BP 101/44; PULSE 75; TEMP 98.4
[2019-08-13 19:15] VITALS: BP 124/52; PULSE 78; TEMP 98.7
[2019-08-13 23:23] VITALS: BP 123/52; PULSE 72; TEMP 98
[2019-08-14 03:03] VITALS: BP 131/61; PULSE 69; TEMP 98
[2019-08-14 07:36] LABS: BASO % 0.3 % (0.0-2.0); EOS # 0.3 (0.0-0.7); EOS % 3.2 % (0-4.0); GRAN # 6.6 (1.4-6.5); GRAN % 76.4 % (42.2-75.2); LYMPH # 1.1 (1.2-3.4); LYMPH % 12.4 % (20.0-51.0); MEAN CELL VOLUME 96 fl (80.0-100.0); MEAN CORPUSCULAR HGB CONC 31 g/dl (33.0-37.0); MEAN PLATELET VOLUME 8.7 fl (7.4-10.4); MONO # 0.6 (0.1-0.6); MONO % 7.2 % (1.7-9.3); PLATELET COUNT 266 K/mm3 (130-400); RED BLOOD COUNT 3.14 M/mm3 (4.20-5.60); REDCELL DISTRIBUTION WIDTH-CV 13.2 % (11.5-14.5)
[2019-08-14 07:42] LABS: CALCIUM 8.1 mg/dL (8.4-10.2); CREATININE, serum 0.69 (0.66-1.25); POTASSIUM 4.8 mmol/L (3.4-5.0)
[2019-08-14 07:44] LABS: HEMATOCRIT 30.2 % (42.0-52.0); HEMOGLOBIN 9.4 g/dl (13.5-18.0); MEAN CORPUSCULAR HEMOGLOBIN 30 pg (27.0-31.0)
[2019-08-14 07:53] VITALS: BP 135/57; PULSE 64; TEMP 98.6
[2019-08-14] MEDS ORDERED: MONODOX100 PO (09:30)
== END 2019-08-14 11:01 | disposition home or self-care (01) | DRG 603 ==
LOC: COL.CAR 09:28 → MEDICAL 15:58 → COL.CAR 16:00 → MEDICAL 16:00 → COL.CAR 08-14 08:00 → MEDICAL 08-14 11:01
PROVIDERS: Internal Medicine Cardiovascular Disease; Physician Assistant; ADMIT Student in an Organized Health Care Education/Training Program
PROC: 4A023N6 Measurement of Cardiac Sampling and Pressure, Right Heart, Percutaneous Approach (ICD-10-PCS; principal; 2019-08-12)
DX: L03.116 Cellulitis of left lower limb (principal); I27.23 Pulmonary hypertension due to lung diseases and hypoxia; I48.0 Paroxysmal atrial fibrillation; I87.2 Venous insufficiency (chronic) (peripheral); R60.9 Edema, unspecified; E78.5 Hyperlipidemia, unspecified; E66.9 Obesity, unspecified; D64.9 Anemia, unspecified; I48.91 Unspecified atrial fibrillation; G47.33 Obstructive sleep apnea (adult) (pediatric); E11.9 Type 2 diabetes mellitus without complications; I10 Essential (primary) hypertension; R53.81 Other malaise; Z79.84 Long term (current) use of oral hypoglycemic drugs; Z60.2 Problems related to living alone; Z68.38 Body mass index [BMI] 38.0-38.9, adult
CPT/HCPCS: 99223-AI; 99231-AI; 99239; C1769; C1894; G0378; G0379; J1644; J2250; J3010

== ENCOUNTER 2019-09-02 11:15 | Outpatient (RCR) | payer MEDICARE, OTHER ==
[~2019-09-02 11:15] MED LIST changes: +CLEOCIN HCL300 MG PO; +MONODOX100 PO
== END 2019-09-09 13:46 | disposition home or self-care (01) ==
LOC: WSC 11:15
DX: M25.562 Pain in left knee (principal)

== ENCOUNTER → 2019-09-03 | Outpatient (CLI) | payer MEDICARE, OTHER | LOC: COL.RAD 10:37 | DX: R06.02 Shortness of breath (principal) ==

== ENCOUNTER 2019-10-14 08:49 | Day surgery (SDC) | payer MEDICARE, OTHER ==
[2019-10-14] VITALS (13 sets, daily range): BP systolic 132–172; BP diastolic 69–93; PULSE 58–74; TEMP 97.9
[~2019-10-14] VITALS: Ht 162.6 cm; Wt 98.0 kg
[2019-10-14 09:43] LABS: HEMOGLOBIN 11.3 g/dl (13.5-18.0); MEAN CELL VOLUME 89 fl (80.0-100.0); MEAN CORPUSCULAR HEMOGLOBIN 27 pg (27.0-31.0); MEAN CORPUSCULAR HGB CONC 31 g/dl (33.0-37.0); MEAN PLATELET VOLUME 8.6 fl (7.4-10.4); PLATELET COUNT 227 K/mm3 (130-400); RED BLOOD COUNT 4.14 M/mm3 (4.20-5.60); REDCELL DISTRIBUTION WIDTH-CV 14.8 % (11.5-14.5)
[2019-10-14 09:50] LABS: INR 1.1 (0.8-3.0); PROTHROMBIN TIME 12.6 SECONDS (9.7-12.8)
[2019-10-14 09:52] LABS: PARTIAL THROMBOPLASTIN TIME 33.7 SECONDS (26.0-37.0)
[2019-10-14 09:55] LABS: CALCIUM 8.9 mg/dL (8.4-10.2); CREATININE, serum 0.88 (0.66-1.25); POTASSIUM 4.5 mmol/L (3.4-5.0)
[2019-10-14] MEDS ORDERED: RT ADVAIR 228 DISKUS IH (10:11)
[2019-10-14] MEDS ORDERED: MUCINEX DM 60 M1 TER PO (10:12)
[2019-10-14] MEDS ORDERED: LASIX 20MG TABL20 MG PO (10:17)
[2019-10-14] MEDS ORDERED: CLARITIN 1010 MG/TAB PO (10:18)
[2019-10-14] MEDS ORDERED: ATARAX 25MG25 MG/TAB PO (10:18)
[2019-10-14] MEDS ORDERED: VENTOLIN0.09 MG IH (10:20)
[2019-10-14] MEDS ORDERED: MULTI VITAMINS1 TAB PO (10:21)
[2019-10-14] MEDS ORDERED: LASIX 40MG TABL40 MG PO (12:02)
--- NOTE | 2019-10-14 12:15 | NUR ---
Pt returned to EU 12 per bed s/p heart cath. Pt resting well, son at bedside.
--- NOTE | 2019-10-14 16:55 | NUR ---
Hematoma at R radial cath site remains stable. Pt denies pain.
--- NOTE | 2019-10-14 17:25 | NUR ---
Radial band removed, site remains soft, C/D/I, covered with bandaid and gauze and wrapped with coban.
--- NOTE | 2019-10-14 17:40 | NUR ---
Pt has ambulated, voided and anisa PO intake s n/v. PIV removed with catheter intact.
--- NOTE | 2019-10-14 17:55 | NUR ---
Pt discharged per w/c by rayray with son.
== END 2019-10-14 17:57 | disposition home or self-care (01) ==
LOC: COL.CAR 08:49
PROVIDERS: Internal Medicine Cardiovascular Disease
DX: I10 Essential (primary) hypertension (principal); I48.0 Paroxysmal atrial fibrillation; R60.0 Localized edema; E78.5 Hyperlipidemia, unspecified; M79.89 Other specified soft tissue disorders; Z79.01 Long term (current) use of anticoagulants; Z79.899 Other long term (current) drug therapy
CPT/HCPCS: J1644; J2250; J3010; Q9967

== ENCOUNTER 2021-08-26 12:26 | Inpatient (IN) | payer MEDICARE, OTHER ==
[~2021-08-26] VITALS: Ht 162.6 cm; Wt 99.3 kg
[2021-08-26] VITALS (214 sets, daily range): BP systolic 116; BP diastolic 62; PULSE 72; TEMP 98.2; O2SAT 75–100
[~2021-08-26 12:26] MED LIST changes: +MULTI VITAMINS1 TAB PO; +RT ADVAIR 228 DISKUS IH; +VENTOLIN0.09 MG IH
[2021-08-26 13:17] LABS: BASO % 0.3 % (0.0-2.0); EOS % 0.3 % (0-4.0); GRAN # 4.7 (1.4-6.5); GRAN % 70.5 % (42.2-75.2); HEMATOCRIT 42.6 % (42.0-52.0); HEMOGLOBIN 13.1 g/dl (13.5-18.0); LYMPH # 1.1 (1.2-3.4); LYMPH % 16.3 % (20.0-51.0); MEAN CELL VOLUME 98 fl (80.0-100.0); MEAN CORPUSCULAR HEMOGLOBIN 30 pg (27.0-31.0); MEAN CORPUSCULAR HGB CONC 31 g/dl (33.0-37.0); MEAN PLATELET VOLUME 9.5 fl (7.4-10.4); MONO # 0.8 (0.1-0.6); MONO % 12.4 % (1.7-9.3); PLATELET COUNT 149 K/mm3 (130-400); RED BLOOD COUNT 4.36 M/mm3 (4.20-5.60); REDCELL DISTRIBUTION WIDTH-CV 15.2 % (11.5-14.5)
[2021-08-26 13:20] LABS: ARTERIAL BLD GAS O2 SATURATION 98.6 % (92-100); ARTERIAL BLD GAS TCO2 CT 31.6; ARTERIAL BLOOD GAS HCO3 29.7 meq/L (22-26); ARTERIAL BLOOD GAS PCO2 61.5 mmHg (35-45); ARTERIAL BLOOD GAS PO2 143.9 mmHg (80-100)
[2021-08-26 13:36] LABS: BILIRUBIN,TOTAL 0.5 mg/dL (0.2-1.2); CALCIUM 8.6 mg/dL (8.4-10.2); CREATININE, serum 1.09 mg/dL (0.72-1.25); POTASSIUM 4.7 mmol/L (3.5-4.5); TOTAL PROTEIN 7.7 gm/dL (6.2-8.1)
[2021-08-26 13:42] LABS: TROPONIN-I 0.025 ng/mL (0.00-0.033)
[2021-08-26] MEDS ORDERED: ULTRAM 50MG TAB50 MG PO (13:54)
[2021-08-26] MEDS ORDERED: KLOR-CON SPRIN10 MEQ PO (13:54)
[2021-08-26] MEDS ORDERED: COUMADIN 5MG5 MG/TAB PO ×2 (13:56→13:57)
[2021-08-26] MEDS ORDERED: COUMADIN 22.5 MG/TAB PO (13:58)
[2021-08-26 15:03] LABS: INR 1.3 (0.8-3.0); PROTHROMBIN TIME 14.7 SECONDS (9.7-12.8)
[2021-08-26] MEDS ORDERED: RT ADVAIR 228 DISKUS IH (17:14)
--- NOTE | 2021-08-26 18:26 | NUR ---
Pt came over from ED at 1650. PT was on 6L OM SPO2 at 100%. PT was alert and oriented. Placed on ICU monitoring. Assessment completed. Orders reveiwed. PTs needs addressed. Call light instructions explained and patient agrees to use it for when he has needs. bed alarm in place as patient is a high fall risk. 1828- PT is curretnly on 3L NC SPO2 at 100%. PT is showing zero signs of discomfort. Will report off to oncoming RN.
[2021-08-27] VITALS (369 sets, daily range): BP systolic 111–154; BP diastolic 63–88; PULSE 60–74; TEMP 98.1–99.5; O2SAT 81–100
[2021-08-27 06:34] LABS: GRAN % 81.6 % (42.2-75.2); HEMATOCRIT 39.8 % (42.0-52.0); HEMOGLOBIN 12.3 g/dl (13.5-18.0); LYMPH # 0.6 (1.2-3.4); LYMPH % 12.5 % (20.0-51.0); MEAN CELL VOLUME 97 fl (80.0-100.0); MEAN CORPUSCULAR HEMOGLOBIN 30 pg (27.0-31.0); MEAN CORPUSCULAR HGB CONC 31 g/dl (33.0-37.0); MEAN PLATELET VOLUME 9.3 fl (7.4-10.4); MONO # 0.3 (0.1-0.6); MONO % 5.7 % (1.7-9.3); PLATELET COUNT 133 K/mm3 (130-400); RED BLOOD COUNT 4.12 M/mm3 (4.20-5.60); REDCELL DISTRIBUTION WIDTH-CV 14.6 % (11.5-14.5)
[2021-08-27 06:51] LABS: C-REACTIVE PROTEIN 3.1 mg/dL (0.00-0.50); CREATININE, serum 1.69 mg/dL (0.72-1.25); POTASSIUM 4.6 mmol/L (3.5-4.5)
[2021-08-27 06:52] LABS: INR 1.5 (0.8-3.0); PROTHROMBIN TIME 16.1 SECONDS (9.7-12.8)
--- NOTE | 2021-08-27 18:19 | NUR ---
Report given to TIMA Ocampo. Pt A&O x 3, denies needs. Call light in reach.
--- NOTE | 2021-08-27 20:55 | NUR ---
Patient alert and oriented. Patient denies any pain or discomfort. Denies SOB or dyspnea. Patient currently on oxygen 2L via NC. Breathing even and unlabored. All scheduled meds given per JAN. Call light in reach. Will continue to monitor.
[2021-08-28 03:54] VITALS: BP 166/66; BP 174/74; PULSE 61; TEMP 98.8
--- NOTE | 2021-08-28 06:24 | NUR ---
Patient remains on 1-2 L oxygen via NC over the night. No acute respiratory distress noted throughout the night. Assisted patient to bedside commode to void x2. Call light in reach.
[2021-08-28 07:55] VITALS: BP 159/91; PULSE 62; TEMP 97.6
--- NOTE | 2021-08-28 07:55 | NUR ---
PT PLEASANT, AOX4, REPORTS PAIN IN RECTUM WITH COUGH. PT REPORTS IRRITATION FROM [facility], PT HAS REDDENED COCCYX THAT IS NON BLANCHABLE BUT SKIN INTACT. PT ASSESSMENT PERFORMED, MEDICATIONS GIVEN, VITALS TAKEN AND REVIEWED, ICE WATER BROUGHT IN FOR PT, PT WAITING FOR BREAKFAST. PT SATTING 100% ON 1L, PUT ON RA AND PT DESAT TO 86% AFTER 10MINUTES. PLACED BACK ON 1L AND WENT TO 92%.
[2021-08-28 07:59] LABS: CALCIUM 8.1 mg/dL (8.4-10.2); CREATININE, serum 1.96 mg/dL (0.72-1.25); POTASSIUM 4.4 mmol/L (3.5-4.5)
[2021-08-28 08:01] LABS: INR 2.3 (0.8-3.0); PROTHROMBIN TIME 25.2 SECONDS (9.7-12.8)
--- NOTE | 2021-08-28 10:48 | NUR ---
FLUIDS ADJUSTED PER ORDER. TELE LEADS REATTACHED.
[2021-08-28 11:17] VITALS: BP 143/72; PULSE 62; TEMP 98
--- NOTE | 2021-08-28 13:16 | NUR ---
LEON updated: SW called patients phone for assessment. Patient refused assessment.
[2021-08-28 16:50] VITALS: BP 150/71; PULSE 66; TEMP 98.1
--- NOTE | 2021-08-28 18:06 | NUR ---
PT PLEASANT, AOX4, PT ON 1L, DENIES SOB AT REST, UP TO BEDSIDE COMMODE WITH LOOSE STOOLS DURING SHIFT. IV FLUIDS INFUSING. NO OTHER NEEDS.
[2021-08-28 19:56] VITALS: BP 155/67; PULSE 62; TEMP 97.9
--- NOTE | 2021-08-28 20:53 | NUR ---
Patient alert and oriented. Patient denies pain, SOB or N/V while at rest. Patient reports having some SOB with activities. Breathing even and unlabored while at rest. Patient currently on 1L oxygen via NC. Assisted patient to bedside commode to void. Patient very weak and requires 1-2 person assist with transfer. IVF infusing well to right wrist IV site. All scheduled meds given per JAN. Call light in reach. Bed alarms on. Will continue to monitor.
[2021-08-29] VITALS (7 sets, daily range): BP systolic 145–163; BP diastolic 65–93; PULSE 57–82; TEMP 97.8–98.5
--- NOTE | 2021-08-29 06:12 | NUR ---
No acute respiratory distress noted throughout the night. Patient currently on room air this morning. SPO2 96% on RA at 04:45 am. Call light in reach.
--- NOTE | 2021-08-29 06:30 | NUR ---
Report received from TIMA Wright. Pt in bed in bed resting ,denies needs, will continue to monitor.
--- NOTE | 2021-08-29 08:27 | NUR ---
Assessment charted. Pt alert and oriented, eating well, tolerating room air with saturations at 95%. Denies pain. uP with assistance of 1 to commode and chair. Will continue to monitor.
[2021-08-29 08:29] LABS: PROTHROMBIN TIME 33.8 SECONDS (9.7-12.8)
[2021-08-29 09:07] LABS: CALCIUM 7.8 mg/dL (8.4-10.2); CREATININE, serum 4.07 mg/dL (0.72-1.25); MAGNESIUM 2.1 mg/dL (1.6-2.6); POTASSIUM 4.1 mmol/L (3.5-4.5)
[2021-08-29 12:58] LABS: COLLECTION METHOD CATHETER
[2021-08-29 13:05] LABS: PH 5 (5-8); SQUAMOUS EPITHELIAL None Seen /hpf; URINE APPEARANCE Clear; URINE BACTERIA None Seen /hpf; URINE BILIRUBIN Negative (NEGATIVE); URINE BLOOD 3+ (NEGATIVE); URINE COLOR Yellow; URINE GLUCOSE Negative (NEGATIVE); URINE KETONE Negative (NEGATIVE); URINE LEUKOCYTE ESTERASE Negative (NEGATIVE); URINE NITRATE Negative (NEGATIVE); URINE PROTEIN(semi-quant) Negative (NEGATIVE); URINE RBC 20-50 /hpf; URINE UROBILINOGEN Negative (NEGATIVE)
[2021-08-29 13:15] LABS: CREATININE, serum 4.47 mg/dL (0.72-1.25); FRACTIONAL EXCRETION OF NA+ 9.6 %
--- NOTE | 2021-08-29 18:18 | NUR ---
pt doing well, has had copious amounts of urine output, continues to be bloody, taking PO well, deneis needs, will give report to sunil winters who will resuem care.
--- NOTE | 2021-08-29 22:27 | NUR ---
PT ALERT AND ORIENTED. PT HAS TREMOR NOTED IN HANDS DURING MEDICATION PASS. PT HAS DIMINISHED LUNG SOUNDS IN BASES BILATERALLY. PT HAS BROWN, LEATHERY SKIN NOTED OVER BOTH LOWER EXTREMITIES. PT DORSALIS PEDIS AND POSTERIOR TIBIAL PULSES 2+ BILATERALLY. CAP REFILL <3S. PT HAS UMBILICAL AND INGUINAL HERNIA NOTED DURING ABDOMEN ASSESSMENT. STALLWORTH CATHETER IN PLACE, HEMATURIA NOTED. PT CALL LIGHT WITHIN REACH. NO OTHER NEEDS AT THIS TIME.
--- NOTE | 2021-08-30 01:51 | NUR ---
mild confusion noted in patient. blood glucose checked 114. pt reoriented, able to answer orientation questions.
[2021-08-30 03:56] VITALS: BP 149/74; PULSE 63; TEMP 97.8
--- NOTE | 2021-08-30 04:46 | NUR ---
PT CONTINUING ON PLAN OF CARE. PT HAD MILD CONFUSION NOTED IN CONVERSATION, ABLE TO ANSWER ORIENTATION QUESTIONS. PT HAD ONE BOUT OF INCONTINENCE OF BOWELS, CLEANED WITH PERSONAL CLEANSING WIPES AND REPOSITIONED. PT STALLWORTH CATHTER CONTINUING TO DRAIN, NO LOOPS PRESENT AT THIS TIME. PT CONTINUES TO MAINTAIN SATURATIONS ABOVE >92% ON ROOM AIR.
[2021-08-30 06:57] LABS: INR 3.4 (0.8-3.0); PROTHROMBIN TIME 38.5 SECONDS (9.7-12.8)
[2021-08-30 07:02] LABS: GRAN # 8.3 (1.4-6.5); GRAN % 84.5 % (42.2-75.2); HEMATOCRIT 39.6 % (42.0-52.0); HEMOGLOBIN 12.9 g/dl (13.5-18.0); LYMPH # 0.8 (1.2-3.4); LYMPH % 8.2 % (20.0-51.0); MEAN CELL VOLUME 93 fl (80.0-100.0); MEAN CORPUSCULAR HEMOGLOBIN 30 pg (27.0-31.0); MEAN CORPUSCULAR HGB CONC 33 g/dl (33.0-37.0); MEAN PLATELET VOLUME 9.9 fl (7.4-10.4); MONO # 0.7 (0.1-0.6); MONO % 6.9 % (1.7-9.3); PLATELET COUNT 164 K/mm3 (130-400); RED BLOOD COUNT 4.25 M/mm3 (4.20-5.60); REDCELL DISTRIBUTION WIDTH-CV 15.2 % (11.5-14.5)
[2021-08-30 07:19] LABS: CALCIUM 8.3 mg/dL (8.4-10.2); CREATININE, serum 1.07 mg/dL (0.72-1.25); POTASSIUM 4.3 mmol/L (3.5-4.5)
[2021-08-30 07:55] VITALS: BP 156/72; PULSE 61; TEMP 99.4
--- NOTE | 2021-08-30 07:58 | NUR ---
Hold tonights dose (08/30) of Warfarin for INR of 3.4 up from 3.0.
--- NOTE | 2021-08-30 09:16 | NUR ---
Pt awake upon entry, no C/O pain at this time. Assisted Pt to bedside commode. Shift assessment complete, left Pt in bed, call light in reach.
[2021-08-30 11:58] VITALS: BP 131/68; PULSE 63; TEMP 98.3
[2021-08-30] MEDS ORDERED: COUMADIN4 MG PO (14:01)
[2021-08-30] MEDS ORDERED: FLOMAX 0.40.4 MG/CAP PO (14:01)
[2021-08-30] MEDS ORDERED: RT Albuterol HFA MDI IH (14:01)
[2021-08-30] MEDS ORDERED: NORVASC 5MG5 MG/TAB PO (14:01)
[2021-08-30] MEDS ORDERED: TYLENOL 325MG325 MG PO (14:02)
[2021-08-30] MEDS ORDERED: ULTRAM 50MG TAB50 MG PO (14:02)
[2021-08-30] MEDS ORDERED: PROTONIX20 MG PO (14:02)
[2021-08-30] MEDS ORDERED: MONODOX100 PO (14:05)
[2021-08-30] MEDS ORDERED: DECADRON6 MG PO (14:06)
--- NOTE | 2021-08-30 14:50 | NUR ---
Tayler, IPR Director, notified SW that she received a consult on the patient and that she is able to accept the patient today. The patient is to discharge today, 08/30, to [facility]. No additional needs at this time.
--- NOTE | 2021-08-30 15:14 | NUR ---
Pt discharged to [facility].
== END 2021-08-30 15:17 | DRG 177 ==
LOC: COL.ER 12:26 → ICU 15:12 → MEDICAL 08-27 16:16
PROVIDERS: Personal Emergency Response Attendant; ADMIT Internal Medicine
PROC: XW033E5 Introduction of Remdesivir Anti-infective into Peripheral Vein, Percutaneous Approach, New Technology Group 5 (ICD-10-PCS; principal; 2021-08-26)
DX: U07.1 COVID-19 (principal); J12.82 Pneumonia due to coronavirus disease 2019; J96.01 Acute respiratory failure with hypoxia; I48.20 Chronic atrial fibrillation, unspecified; N17.9 Acute kidney failure, unspecified; N13.8 Other obstructive and reflux uropathy; I10 Essential (primary) hypertension; G47.33 Obstructive sleep apnea (adult) (pediatric); E11.9 Type 2 diabetes mellitus without complications; G89.29 Other chronic pain; I87.2 Venous insufficiency (chronic) (peripheral); I27.20 Pulmonary hypertension, unspecified; N40.1 Benign prostatic hyperplasia with lower urinary tract symptoms; G72.9 Myopathy, unspecified; I25.2 Old myocardial infarction; Z79.84 Long term (current) use of oral hypoglycemic drugs; Z79.01 Long term (current) use of anticoagulants
CPT/HCPCS: 99223-AI; 99232-AI; 99233-AI; 99239; A4314; J0696; J1815; J1940; J7030; J7050; J8540

== ENCOUNTER 2021-08-30 15:23 | Inpatient (IN) | payer MEDICARE, OTHER ==
[~2021-08-30] VITALS: Ht 162.6 cm; Wt 98.1 kg
[~2021-08-30 15:23] MED LIST changes: +COUMADIN 22.5 MG/TAB PO; +COUMADIN 5MG5 MG/TAB PO; +COUMADIN4 MG PO; +DECADRON6 MG PO; +FLOMAX 0.40.4 MG/CAP PO; +KLOR-CON SPRIN10 MEQ PO; +NORVASC 5MG5 MG/TAB PO; +PROTONIX20 MG PO; +RT Albuterol HFA MDI IH; +TYLENOL 325MG325 MG PO
[2021-08-30 16:40] VITALS: BP 163/73; PULSE 65; TEMP 98
[2021-08-30 19:32] VITALS: PULSE 69; TEMP 97.8
[2021-08-30 20:41] VITALS: BP 135/74
--- NOTE | 2021-08-30 23:03 | NUR ---
PT ALERT, ORIENTATION QUESTIONS ANSWERED APPROPRIATELY. PT CONVERSATION CONFUSED REORIENTED TO BEST OF ABILITY. TREMORS NOTED IN BILATERAL HANDS. PT BASES DIMINISHED BILATERALLY. PT STALLWORTH INTACT, SECUREMENT DEVICE REPLACED. MARINA-CARE PROVIDED. PT URINE IS BLOOD-TINGED WITH A FEW CLOTS NOTED IN CATHETER. PT HAS SKIN TEAR ON LEFT FOREARM FROM FALL, HEALING AND SCABBED. PT CALL LIGHT WITHIN REACH, CLUTTER REMOVED.
[2021-08-30 23:59] VITALS: BP 164/79; PULSE 69; TEMP 98
--- NOTE | 2021-08-31 00:04 | NUR ---
PT ATTEMPT TO GET OUT OF BED, YELLING AT SIDE OF BED FOR HELP. PT CONFUSED, UNABLE TO TELL WHERE HE IS. PT REORIENTED TO TIME AND PLACE. PT STATES HE WAS DREAMING. PT REPOSITIONED IN BED, NEW CORI PLACED AT THIS TIME. BED ALARM ON. PT BLOOD PRESSURE ELEVATED AT THIS TIME. WILL RECHECK AT LATER TIME TO CONFIRM.
[2021-08-31 00:35] VITALS: BP 164/73
--- NOTE | 2021-08-31 00:39 | NUR ---
PT BLOOD PRESSURE RETAKEN AT THIS TIME, 164/73. PT ASYMPTOMATIC FOR DIZZINESS, SOA, CHEST PAIN. WILL CONTINUE TO MONITOR WITH 0400 VITALS.
[2021-08-31 03:39] VITALS: BP 150/92; PULSE 66; TEMP 98.3
--- NOTE | 2021-08-31 04:00 | NUR ---
PT CONFUSED DURING 399 VITAL SIGN COLLECTION. PT ASKING "DID YOU TAKE THE KIDS TO SCHOOL" AND "I NEED TO GET ON FLAT GROUND" PT STATES HE WAS DREAMING. PT TREMORS IN HANDS APPEARING TO BE MORE PRONOUNCED AT THIS TIME. PT DENIES PAIN, SOA, DIZZINESS. PT STAND PIVOT WITH WALKER TO COMMODE. PT IV DRESSING COMING LOOSE, REDRESSED AND ATTEMPT TO FLUSH. PT IV LEAKING.
[2021-08-31 05:28] LABS: INR 3.7 (0.8-3.0); PROTHROMBIN TIME 41.6 SECONDS (9.7-12.8)
[2021-08-31 05:33] LABS: COLLECTION METHOD CATHETER
[2021-08-31 05:44] LABS: MUCOUS Present /lpf; PH 6 (5-8); SQUAMOUS EPITHELIAL None Seen /hpf; URINE APPEARANCE Clear; URINE BACTERIA None Seen /hpf; URINE BILIRUBIN Negative (NEGATIVE); URINE BLOOD 3+ (NEGATIVE); URINE COLOR Yellow; URINE GLUCOSE Negative (NEGATIVE); URINE KETONE Negative (NEGATIVE); URINE LEUKOCYTE ESTERASE Negative (NEGATIVE); URINE NITRATE Negative (NEGATIVE); URINE PROTEIN(semi-quant) Negative (NEGATIVE); URINE RBC >50 /hpf; URINE UROBILINOGEN Negative (NEGATIVE)
--- NOTE | 2021-08-31 05:45 | NUR ---
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 I HAVE TO GET OUT OF HERE." PT BLOOD SUGAR 100, PT LINT CLEANER EQUAL. PT PLANTAR AND DORSIFLEXION EQUAL. PUPILS PERRLA SIZE, 4MM BILATERAL, BRISK RESPONSE. PT DISORIENTED, REORIENTED TO TIME AND PLACE. PT AMBULATED TO CHAIR, INSTRUCTED TO STAY IN CHAIR.
--- NOTE | 2021-08-31 07:15 | NUR ---
REPORT GIVEN TO DAY SHIFT OF SIGNIFICANT CHANGES IN PATIENT THIS SHIFT. PT REPOSITIONED IN CHAIR AFTER RETURNING FROM CT SCAN. PT CALL LIGHT WITHIN REACH AT THIS TIME.
[2021-08-31 08:00] VITALS: BP 114/78; PULSE 79; TEMP 97.9
--- NOTE | 2021-08-31 08:30 | NUR ---
Pt awake upon entry, sitting in the recliner. No C/O pain at this time. Shift assessment complete, left Pt call light in reach.
[2021-08-31 11:20] VITALS: BP 146/67; PULSE 74; TEMP 98.2
[2021-08-31 16:29] VITALS: BP 159/75; PULSE 78; TEMP 98.3
--- NOTE | 2021-08-31 16:33 | NUR ---
The patient is COVID positive. SW contacted the patient's room phone to complete intake, as the patient is new to [facility]. The patient lives in [place] with his lady friend, Carly (ph#[phone]). He reports independence with ADLs and has a cane and walker. The patient's PCP is Dr. Matt De La Torre and he receives his medications from [facility]. He reports occasional difficulties obtaining his meds. The patient does not have a DPOA-HC and he was not interested in completing one at this time. The patient states that he is not and that he has one living child: Kevin Kelly (ph#[phone]). He states that Kevin is helping install a walk-in shower in his home. SW to continue to follow.
[2021-08-31 20:41] VITALS: BP 152/71; PULSE 77; TEMP 97.8
--- NOTE | 2021-08-31 21:00 | NUR ---
Patient is resting in bed, alert and oriented x 4, VSS, room air, no pain, nausea or vomiting, catheter carrasco in place, explaned the reason of the catheter. Assessment completed, medication provided, no further needs at this time, call light within reach.
[2021-09-01 05:07] VITALS: BP 145/65; PULSE 69; TEMP 98.5
--- NOTE | 2021-09-01 06:29 | NUR ---
Patient has had a calm night. He is alert but with slurred speech. Continues at RA. Shift report will be given to day shift nurse.
[2021-09-01 08:16] LABS: CALCIUM 8.6 mg/dL (8.4-10.2); CREATININE, serum 0.74 mg/dL (0.72-1.25); MAGNESIUM 1.9 mg/dL (1.6-2.6)
[2021-09-01 08:41] VITALS: BP 117/57; PULSE 72; TEMP 98
--- NOTE | 2021-09-01 10:03 | NUR ---
Pt awke upon entry, PT in room with Pt. Shift assessment complete, left Pt call light in reach, bed in lowest position.
[2021-09-01 12:04] LABS: PROTHROMBIN TIME 33.3 SECONDS (9.7-12.8)
--- NOTE | 2021-09-01 14:09 | NUR ---
Notified by OT that Pt was unresponsive, upon entry, having seizure like activity, would no respond to voice, Pt would respond to a sternal rub, opens eyes but falls quickly back to former state. VS BP 123/54, T 97.6, P 70, O2 94% room air. Contacted physician.
[2021-09-01] MEDS ORDERED: NORVASC2.5 MG PO (17:03)
[2021-09-01] MEDS ORDERED: COZAAR100 MG PO (17:05)
[2021-09-01] MEDS ORDERED: LIPITOR 80MG80 MG PO (17:06)
[2021-09-01] MEDS ORDERED: ASPIRIN 81M81 MG/TA2 PO (17:07)
[2021-09-01] MEDS ORDERED: LOPRESSOR 225 MG/TAB PO ×2 (17:15→17:16)
[2021-09-01] MEDS ORDERED: CATAPRES 0.1MG0.1 MG PO (17:17)
[2021-09-01] MEDS ORDERED: APRESOLINE 10MG10 MG PO (17:19)
[2021-09-01] MEDS ORDERED: NOVOLOG 100U100 U/M1 SQ (17:21)
[2021-09-01] MEDS ORDERED: LEVEMIR100 U/ML SQ (17:23)
[2021-09-01 17:25] VITALS: BP 143/86; PULSE 103; TEMP 97.8
[2021-09-01] MEDS ORDERED: FOLIC ACID 11 MG/TA1 PO (17:25)
[2021-09-01] MEDS ORDERED: PHOSLO667 MG PO (17:26)
[2021-09-01] MEDS ORDERED: CORTEF 20MG TAB20 MG PO (17:28)
[2021-09-01] MEDS ORDERED: PRILOSEC 20MG20 MG PO (17:30)
[2021-09-01] MEDS ORDERED: MYCOSTATIN100000 U/1 TP (17:31)
[2021-09-01] MEDS ORDERED: LYRICA 25MG CAP25 MG PO (17:34)
[2021-09-01] MEDS ORDERED: FLORINEF ACETA0.1 MG PO (17:36)
[2021-09-01] MEDS ORDERED: IPRATROPIUM BROM3 M1 IH (17:38)
[2021-09-01] MEDS ORDERED: CYMBALTA 30MG30 MG PO (17:45)
[2021-09-01] MEDS ORDERED: CIPRO 500MG TA500 MG PO (17:48)
[2021-09-01] MEDS ORDERED: LAC-HYDRIN121 TP (17:50)
[2021-09-01] MEDS ORDERED: BIOTENE DRY M1000 ML MM (17:52)
[2021-09-01] MEDS ORDERED: NATURE'S BLEND100 M2 PO (17:54)
[2021-09-01 19:44] VITALS: BP 126/91; PULSE 75; TEMP 98.5
--- NOTE | 2021-09-01 22:32 | NUR ---
PT DROWSY ABLE TO BE AROUSED WITH NAME, ABLE TO ANSWER ORIENTATION QUESTIONS. CONVERSATION CONFUSED. PT SPEECH NOTED TO BE SLURRED. PT GIS MANAGER EQUAL. PT ACTIVE BOWEL SOUNDS. CATHTER CARE PERFORMED. PT STALLWORTH CONTINUING TO DRAIN AT THIS TIME. PT HAS SKIN TEARS ON LEFT FOREARM AND RIGHT SHOULDER/TRICEP. PT HAS DEEP PURPLE BRUISE ON RIGHT KNEE EXTENDING INTO CALF. PT BUTTOCKS REDDENED, NON-BLANCHABLE AT THIS TIME. PILLOW PLACED UNDER RIGHT HIP TO ALLEVIATE PRESSURE. PT CALL LIGHT WITHIN REACH.
[2021-09-01 23:53] VITALS: BP 127/69; PULSE 60; TEMP 98.4
--- NOTE | 2021-09-02 00:22 | NUR ---
PT REPOSITIONED TO LEFT HIP. TREMORS NOTED. ATTEMPT TO CLEAN ARMPITS AND PLACE INTERDRY TO DECREASE MOISTURE. PT TREMORING SIGNIFICANTLY IN ARMS. PT DROWSY, MULTIPLE VERBAL CUES TO GET PT TO OPEN EYES. LIP SMACKING BEHAVIOR AND GROANING NOTED IN PATIENT.
--- NOTE | 2021-09-02 00:29 | NUR ---
NOTIFIED ERNESTO, RUCHING MACHINE OPERATOR OF LIP-SMACKING BEHAVIORS AND TREMORS CONTINUING. RECEIVED VERBAL INSTRUCTION TO CONTINUE TO MONITOR.
[2021-09-02 04:08] VITALS: BP 138/78; PULSE 66; TEMP 97.8
--- NOTE | 2021-09-02 04:34 | NUR ---
PT REPOSITIONED IN BED, PILLOW REMOVED FROM LEFT SIDE TO HAVE PT SUPINE AT THIS TIME.
--- NOTE | 2021-09-02 04:55 | NUR ---
PT CONTINUING ON PLAN OF CARE. PT SLEPT MOST OF THIS SHIFT, ABLE TO AROUSE TO NAME. PT SPEECH NOTED TO BE SLURRED WHEN IN AND OUT OF SLEEP. PT SPEECH CLEAR WHEN AWAKE. PT VITAL SIGNS REMAINED STABLE THIS SHIFT. PT CONTINUES TO HAVE JERKING MOTIONS OF HANDS NOTED AND AUDIBLE GRUNTING. PT DENIED PAIN THIS SHIFT.
[2021-09-02 08:31] VITALS: BP 139/57; PULSE 66; TEMP 99.1
[2021-09-02 09:06] LABS: INR 2.8 (0.8-3.0); PROTHROMBIN TIME 31.1 SECONDS (9.7-12.8)
--- NOTE | 2021-09-02 09:51 | NUR ---
CALLED DR. JORGE TO DISCUSS NURSING ORDER. ORDERED TO OBTAIN WHO DIAGNOSED PT WITH NON EPILEPTIC SEIZURES, OBTAIN LAB PER ORDER WHEN PT HAS LARGE SEIZURE SIMILAR TO GRAND MAL
--- NOTE | 2021-09-02 10:18 | NUR ---
LEFT MESSAGE FOR NURSE AT DR. JORGENSEN'S OFFICE TO OBTAIN HISTORY ON NON EPILEPTIC SEIZURES.
--- NOTE | 2021-09-02 13:12 | NUR ---
Admission QIM scores were reviewed by the team. Code of 1 chosen for toilet hygiene was determined by team discussion to be the most usual performance for this patient during the assessment period. Code of 88 for sit to stand was determined by team discussion to be the most usual performance for this patient during the assessment period. Code of 3 chosen for sit to lying was determined by team discussion to be the most usual performance for this patient during the assessment period. Code of 3 chosen for lying to sitting on side of bed was determined by team discussion to be the most usual performance for this patient during the assessment period. Code of 3 chosen for sit to stand was determined by team discussion to be the most usual performance for this patient during the assessment period. Code of 1 for chair/bed to chair transfers was determined by team discussion to be the most usual performance for this patient during the assessment period.--Tayler Ochoa, PD
--- NOTE | 2021-09-02 18:13 | NUR ---
PT PLEASANT ALL DAY. MINOR MYOCLONIC MOVEMENTS NOTED THROUGHOUT DAY. SOME CONFUSION STILL PRESENT, BUT ABLE TO COMMUNICATE CLEARLY THROUGHOUT DAY. EEG DONE IN MORNING, MONITORED FOR ANY SEIZURE ACTIVITY. PT PCP STATED NO HX OF NONEPILETIC SEIZURES. PT ON RA ALL DAY.
[2021-09-02 19:41] VITALS: BP 101/51; PULSE 68; TEMP 99.1
--- NOTE | 2021-09-02 21:54 | NUR ---
PT RESTING IN BED. EVENING MEDICATIONS GIVEN. SHIFT ASSESSMENT COMPLETED. PT OBSERVED HAVING JERKING MOVEMENTS IN ARMS AND LEGS, ARMS ALSO HAVE NOTICABLE TREMORS. DENIES ANY PAIN OR NEEDS. WILL CONTINUE TO MONITOR.
[2021-09-03 00:25] VITALS: BP 118/66; PULSE 63; TEMP 97.4
[2021-09-03 03:14] VITALS: BP 120/65; PULSE 65; TEMP 98.6
--- NOTE | 2021-09-03 05:45 | NUR ---
PT HAD AN UNEVENTFUL NIGHT. DENIES ANY NEEDS THIS MORNING. CONTINUING TO MONITOR.
[2021-09-03 08:24] VITALS: BP 163/68; PULSE 64; TEMP 97.6
[2021-09-03 08:34] LABS: INR 2.9 (0.8-3.0); PROTHROMBIN TIME 32.5 SECONDS (9.7-12.8)
--- NOTE | 2021-09-03 11:55 | NUR ---
Reviewed Team Conference notes from Monday's meeting. Pt stated he understood but really wants to be able to get back home. We talked about how he continues to need assistance from staff for his moblity & self care due to his strength & endurance. Told him the plan is to talk again next Monday on how he has progressed & a potential d/c date. He again talked about being able to go home & back to work. SW again talked to him about needing to build his strength & endurance up more so we can get him home to eventually get back to work. He stated he understood. SW will continue to follow for support & d/c planning.
--- NOTE | 2021-09-03 17:32 | NUR ---
PT PLEASANT ALL DAY LONG WITH NO COMPLAINTS. THIS AM FOR LAB DRAW, HAD DIFFICULTY DRAWING BLOOD DUE TO PT VEINS. REMINDED PT TO DRINK PLENTY OF FLUIDS. PT REQUIRED 4 UNITS OF INSULIN AT 1700 FOR A BG OF 151. PT DID NOT SEEM CONFUSED DURING THE DAY HE WAS EARLY IN MORNING.
[2021-09-03 20:39] VITALS: BP 105/50; PULSE 65; TEMP 98
--- NOTE | 2021-09-03 21:05 | NUR ---
PT RESTING IN BED. EVENING MEDICATION GIVEN. SHIFT ASSESSMENT COMPLETED. PT STILL PRESENTING WITH JERKING AND SHAKING IN HIS EXTREMITIES. SPEECH IS MUCH CLEARER THIS EVENING. DENIES ANY NEEDS. WILL CONTINUE TO MONITOR.
[2021-09-04 00:34] VITALS: BP 135/63; PULSE 65; TEMP 97.4
[2021-09-04 04:16] VITALS: BP 132/62; PULSE 65; TEMP 98.3
--- NOTE | 2021-09-04 05:52 | NUR ---
PT HAD A RESTFUL AND UNEVENTFUL NIGHT. DENIES ANY NEEDS. WILL CONTINUE TO MONITOR.
[2021-09-04 07:30] LABS: INR 2.9 (0.8-3.0); PROTHROMBIN TIME 32.7 SECONDS (9.7-12.8)
--- NOTE | 2021-09-04 10:55 | NUR ---
Patient laying in bed upon entering the room. Patient told this RN that he was not doing well since his brother at 0400 this morning. All morning medications administered and shift assessment completed.
--- NOTE | 2021-09-04 18:17 | NUR ---
Patient has done well today. PT and OT worked with him without any difficulty. Catheter is still in place and draining well.
[2021-09-04 19:57] VITALS: BP 99/49; PULSE 72; TEMP 98.3
[2021-09-05] VITALS (8 sets, daily range): BP systolic 89–129; BP diastolic 47–74; PULSE 62–71; TEMP 97.8–99
[2021-09-05 07:52] LABS: INR 2.5 (0.8-3.0); PROTHROMBIN TIME 27.9 SECONDS (9.7-12.8)
--- NOTE | 2021-09-05 09:46 | NUR ---
Patient laying in bed watching TV upon entering the room. Patient was very pleasant and did not display any confusion, he answered all questions appropriately.
--- NOTE | 2021-09-05 18:23 | NUR ---
Patient has done well today. told this RN that the plan is to try and get the patient off isolation tomorrow and possibly move him to the [facility] area. Patient has not had any complaints. VSS and did not require insulin prior to any meals.
[2021-09-06 04:03] VITALS: BP 100/49; PULSE 58; TEMP 97.9
--- NOTE | 2021-09-06 07:00 | NUR ---
Report received from TIMA Chandler. Pt in bed resting waiting on breakfast, will continue to monitor.
[2021-09-06 08:09] VITALS: BP 118/56; PULSE 59; TEMP 98.2
--- NOTE | 2021-09-06 08:22 | NUR ---
Assessment charted. Pt awake and alert and oriented. Doing well, denies pian. Will continue to monitor. Called Infection Control nurse regarding coming out of COVID isolation today but no answer, will confirm when they arrive.
--- NOTE | 2021-09-06 11:50 | NUR ---
Report recieved from TIMA Aguilar. Patient is A & ) x 4 and pleasant to work with. Patient becomes disoriented when first waking up and because he sleeps hard it is hard awaken him. May be narcoleptic or have seizures but no diagnosis. Patient has a Fry and will take out on 09/07/21 for a trial. Patient has parameters on most of his hypertension medication so check BP prior to administering medications. Patient has bruising on right anterior and posterior shoulder from fall. Patient is one person assist to SBA. Patient lives alone but has a lady friend to help out once he is discharged. Patient is tolerating therapy well. Call light and bedside table are within reach. Patient has been oriented to room and has no further questions at this time. Will continue to montior patient throughout shift.
--- NOTE | 2021-09-06 12:37 | NUR ---
Call to Dr. Jarquin and confirmed pt can come off isolation today.
--- NOTE | 2021-09-06 13:06 | NUR ---
Pt belongings and pt take down to IPR room 337 via w/eddie Jane received report, pt care to be continued by IPR nurse.
[2021-09-07 05:17] VITALS: BP 105/53; PULSE 64; TEMP 97.5
--- NOTE | 2021-09-07 06:59 | NUR ---
Report received from TIMA Mcfarland. Patient is resting in bed. Call light and bedside table are within reach. Will continue to monitor patient throughout shift.
--- NOTE | 2021-09-07 08:30 | NUR ---
This nurse removed patient's Fry and patient tolerated it well. There was scant amount of blood in Fry but nothing remarkable.
[2021-09-07 08:43] LABS: PROTHROMBIN TIME 22.2 SECONDS (9.7-12.8)
--- NOTE | 2021-09-07 10:49 | NUR ---
Warfarin Follow-up Pharmacy Note Current regimen: Warfarin 3 mg po qHS LABS: INR 2 Changes in therapy: Will increase Warfarin to 3.5 mg po qHS as INR decreasing from 2.9 on Warfarin 3 mg daily dose. Pharmacy will continue to closely monitor INR levels.
[2021-09-07 17:33] VITALS: BP 107/48; PULSE 68; TEMP 99
--- NOTE | 2021-09-07 22:15 | NUR ---
Patient denies having pain and discomfort. LS CTA. Respirations even and unlabored. HRR. Capillary refill less than 3 seconds. Non-tenting skin turgor. BSAx4. Abdomen soft and non-tender. Redness to bottom, blanchable. 2+ edema BLE. Discoloration to BLE, venous stasis. Scaling/flaking BLE. Voices no questions, needs, or concerns at this time. Resting in bed with call light within reach.
[2021-09-08 05:22] VITALS: BP 97/44; PULSE 67
--- NOTE | 2021-09-08 05:41 | NUR ---
Patient has denied having pain and discomfort this shift. Has been able to urinate without any complaints of pain, burning, and discomfort. Has voiced no questions, needs, or concerns at this time. Resting in bed with call light within reach.
[2021-09-08 07:09] LABS: CALCIUM 8.8 mg/dL (8.4-10.2); CREATININE, serum 0.98 mg/dL (0.72-1.25); MAGNESIUM 2.5 mg/dL (1.6-2.6); POTASSIUM 4.8 mmol/L (3.5-4.5)
[2021-09-08 07:16] LABS: INR 1.8 (0.8-3.0); PROTHROMBIN TIME 20.5 SECONDS (9.7-12.8)
[2021-09-08 16:07] VITALS: BP 108/47; PULSE 73; TEMP 99
--- NOTE | 2021-09-08 16:24 | NUR ---
LEON contacted the patient's girlfriend, Carly, to review the IPR Team Conference Note and the team's plan for a discharge date for next Monday, 09/14, with home health PT/OT and possibly ST. Carly was in agreement to the plan. Carly reports that she can be here at 1300 on Monday for a patient/family meeting. LEON contacted the patient's son, Kevin, and updated him on the above. Kevin reports that he is installing a new shower for the patient and he will be putting a seat in the shower. Kevin reports that he will be available by phone for the patient/family meeting on Monday. LEON met with the patient and reviewed the IPR Team Conference Note with him. The patient was agreeable to the plan. LEON provided him with Medicare.gov's list of home health agencies that serve [place] and that also provide ST. The patient would like some time for him and Carly to look over the list. LEON updated IPR director. LEON to continue to follow.
--- NOTE | 2021-09-08 18:29 | NUR ---
RECEIVED CHANGE OF SHIFT REPORT FROM DAY SHIFT NURSE.
--- NOTE | 2021-09-08 18:43 | NUR ---
PATIENT RESTING IN BED, WATCHING TV. EXIT ALARM ON WHEN IN BED. DENIES ANY NEEDS AT THIS TIME. CALL LIGHT WITHIN REACH.
[2021-09-09 04:54] VITALS: BP 100/54; PULSE 68; TEMP 99
--- NOTE | 2021-09-09 07:13 | NUR ---
Received report from TIMA Hammond. Patient is sleeping in bed. Call light and bedside table are within reach. Will continue to monitor patient throughout shift.
--- NOTE | 2021-09-09 07:17 | NUR ---
CHANGE OF SHIFT REPORT GIVEN TO DAY SHIFT NURSE, JAVED ALFRED.
[2021-09-09 08:12] LABS: INR 1.9 (0.8-3.0); PROTHROMBIN TIME 21.1 SECONDS (9.7-12.8)
--- NOTE | 2021-09-09 15:00 | NUR ---
Patient has completed all therapies for the day and is resting comfortably in bed. Call light and bedside table are within reach.
[2021-09-09 16:18] VITALS: BP 105/44; PULSE 70; TEMP 98.6
--- NOTE | 2021-09-09 19:06 | NUR ---
This nurse titrated patient from 2% lpm to 1 lpm for 30 minutes and patient SPO2 was 93%. This nurse made the night nurse aware of the change to continue to monitor.
--- NOTE | 2021-09-09 19:38 | NUR ---
PT RESTING IN ED. DENIES ANY COMPLAINTS. NO RESP DISTRESS. ON ROOM AIR. CALL LIGHT IN REACH. BED ALARM SET.
--- NOTE | 2021-09-10 02:15 | NUR ---
PT ADMITTED PER STRETCHER FROM [facility]. PT CONFUSED AND PULLING AT IV AND STALLWORTH. NOTIFIED JANINE MORGAN PT IS HERE.
[2021-09-10 05:20] VITALS: BP 108/55; PULSE 66; TEMP 97.9
[2021-09-10 07:00] LABS: PROTHROMBIN TIME 22.1 SECONDS (9.7-12.8)
--- NOTE | 2021-09-10 13:43 | NUR ---
SW attended the patient/family meeting. The patient's girlfriend, Carly, at [facility]. The patient's son, Kevin, was on speaker phone. IPR Director started by explaining the purpose of the meeting. PT/OT/ST then discussed the patient's progress so far. The team informed them how a discharge date has been set for next Monday, 09/14, with home health PT/OT/ST and they recommend a FWW. The patient and his family were in agreement to the plan. Carly reports that the patient was having falls at home before COVID and asked about solutions for when he gets up night to go to the restroom. The team informed them of the options of having a bedside commode, a urinal, and the possiblity of a baby monitor. Carly and Kevin verbalized understanding. The team answered all questions. LEON then followed up with the patient and Carly about home health preference. The patient chose [facility]. LEON contacted and faxed a referral to Ute at [facility]. Ute reports that they are able to accept the patient for services. The patient was also agreeable to get him FWW from [facility]. SW will need to fax the patient's FWW order to [facility] on Monday.
--- NOTE | 2021-09-10 14:48 | NUR ---
PT RESTING IN BED APPEARS TO BE SLEEPING AT THIS TIME AFTER THERAPY.
[2021-09-10 16:08] VITALS: BP 108/52; PULSE 70; TEMP 98.3
--- NOTE | 2021-09-10 19:44 | NUR ---
PT RESTING IN BED . NO NEEDS OR COMPLAINTS AT THIS TIME. WATCHING FOOTBALL ON TV. CALL LIGHT IN REACH. BED ALARM SET.
[2021-09-11 04:24] VITALS: BP 106/47; PULSE 62; TEMP 97.4
--- NOTE | 2021-09-11 06:57 | NUR ---
Report received from TIMA Cadena. Patient is resting comfortably in bed. Call light and bedside table are within reach. Will continue to monitor throughout shift.
[2021-09-11 07:45] LABS: INR 1.9 (0.8-3.0); PROTHROMBIN TIME 21.2 SECONDS (9.7-12.8)
--- NOTE | 2021-09-11 12:00 | NUR ---
Patient has finished all therapy and is comfortable in bed. Patient denies pain at this time. Call light and bedside table are within reach.
[2021-09-11 16:22] VITALS: BP 120/51; PULSE 65; TEMP 98.6
--- NOTE | 2021-09-11 21:12 | NUR ---
PT RESTING IN BED. NO NEEDS AT THIS TIME. WATCHING FOOTBALL ON TV. NOTED SIGNIFICANT KYPHOSIS. CALL LIGHT IN REACH. BED ALARM SET.
[2021-09-12 04:25] VITALS: BP 125/55; PULSE 63; TEMP 98.4
--- NOTE | 2021-09-12 05:46 | NUR ---
ASSISTED PT TO BR WITH WALKER. INCONTINENT URINE THIS AM. CHANGED MEPILEX DRESSING TO COCCYX. BILAT INNER BUTTOCKS CHAFFED WITH SMALL OPEN AREAS X2.
--- NOTE | 2021-09-12 07:00 | NUR ---
Report received from TIMA Cadena. Pt in bed resting, denies needs will continue to monitor.
[2021-09-12 08:19] LABS: PROTHROMBIN TIME 22.3 SECONDS (9.7-12.8)
[2021-09-12 12:00] VITALS: BP 129/79; PULSE 72; TEMP 98
[2021-09-12 16:15] VITALS: BP 115/55; PULSE 68; TEMP 98.9
--- NOTE | 2021-09-12 18:20 | NUR ---
PT has done well over shift. Up to bathroom and back to bed, did have urge incontinence. Resting quietly, deneis needs, will continue to monitor.
--- NOTE | 2021-09-12 18:22 | NUR ---
Pt has done well, denies needs, will give report to nightshift nurse who will resume care.
--- NOTE | 2021-09-12 21:00 | NUR ---
ASSISTED PT TO BR WITH WALKER CGA. PT INCONTINNET IN BRIEF. CLEANED UP. BACK TO BED. NO NEEDS AT THIS TIME. CALL LIGHT IN REACH. BED ALARM SET.
[2021-09-13 04:10] VITALS: BP 112/52; PULSE 65; TEMP 98.2
--- NOTE | 2021-09-13 07:39 | NUR ---
Patient is resting comfortably in bed and denies pain at this time. Call light and bedside table are within reach. Will continue to monitor throughout shift.
[2021-09-13 08:22] VITALS: BP 116/55; PULSE 70; TEMP 98
[2021-09-13 09:17] LABS: INR 1.9 (0.8-3.0); PROTHROMBIN TIME 20.8 SECONDS (9.7-12.8)
--- NOTE | 2021-09-13 11:03 | NUR ---
Personal Companion contacted [facility] and faxed referral/order for front wheeled walker. Timothy at [facility] advised they could likely deliver walker to the hospital tomorrow. LEON met with patient to provide the above update. LEON also advised patient that [facility] had accepted and what to expect upon discharge. LEON reviewed IM form with patient who verbalized understanding and provided signature. LEON placed original in chart and provided copy to patient.
--- NOTE | 2021-09-13 12:46 | NUR ---
Warfarin Follow-up Pharmacy Note Current regimen: Warfarin 3.5 mg po qHS LABS: INR 1.9 Changes in therapy: Will increase Warfarin to 4 mg po qHS. Pharmacy will continue to closely monitor INR levels.
--- NOTE | 2021-09-13 19:00 | NUR ---
RECEIVED CHANGE OF SHIFT REPORT FROM DAY SHIFT NURSE. PATIENT UP IN ROOM PER SELF WITH NO REPORTED PROBLEMS OR CONCERNS. CALL LIGHT WITHIN REACH.
[2021-09-13] MEDS ORDERED: PROAIR HFA0.09 MG/AC IH (20:40)
[2021-09-13] MEDS ORDERED: COUMADIN4 MG PO (20:48)
[2021-09-14 05:12] VITALS: BP 131/56; PULSE 64; TEMP 98.4
[2021-09-14 07:05] LABS: PROTHROMBIN TIME 22.6 SECONDS (9.7-12.8)
--- NOTE | 2021-09-14 07:28 | NUR ---
CHANGE OF SHIFT REPORT GIVEN TO DAY SHIFT NURSE, ANTONIO ALFRED.
[2021-09-14 08:36] VITALS: BP 150/59; PULSE 82; TEMP 98.5
--- NOTE | 2021-09-14 12:51 | NUR ---
Pre-discharge skin assessment completed: No wound or pressure injury observed on sacrum/gluteal-fold/coccyx - a small, non-tender blanchable redness to gluteal fold observerd
--- NOTE | 2021-09-14 14:45 | NUR ---
Decorating Equipment Setter confirmed with [place] [facility] that patient's front wheeled walker will be delivered by 1330. SW notified RNEdy. LEON contacted Ute at [facility] and faxed discharge orders. Ute advised she called patient who reported his lady friend was sick so he was going to stay with his son in [place] for a few days. Ute advised she will follow up with patient to establish services once he returns home.
== END 2021-09-14 13:12 | disposition home or self-care (01) | DRG 91 ==
LOC: MEDICAL 15:23
PROVIDERS: Student in an Organized Health Care Education/Training Program; ADMIT Internal Medicine
DX: G72.81 Critical illness myopathy (principal); J12.82 Pneumonia due to coronavirus disease 2019; U07.1 COVID-19; J96.01 Acute respiratory failure with hypoxia; I48.20 Chronic atrial fibrillation, unspecified; N17.9 Acute kidney failure, unspecified; G93.40 Encephalopathy, unspecified; R53.81 Other malaise; Z73.6 Limitation of activities due to disability; R26.89 Other abnormalities of gait and mobility; G47.33 Obstructive sleep apnea (adult) (pediatric); E11.9 Type 2 diabetes mellitus without complications; G89.29 Other chronic pain; I10 Essential (primary) hypertension; I87.2 Venous insufficiency (chronic) (peripheral); I27.20 Pulmonary hypertension, unspecified; I25.2 Old myocardial infarction; Z88.2 Allergy status to sulfonamides; Z88.8 Allergy status to other drugs, medicaments and biological substances; Z79.84 Long term (current) use of oral hypoglycemic drugs; Z79.01 Long term (current) use of anticoagulants; Z79.891 Long term (current) use of opiate analgesic; Z79.899 Other long term (current) drug therapy; W19.XXXD Unspecified fall, subsequent encounter; S70.01XD Contusion of right hip, subsequent encounter; R22.31 Localized swelling, mass and lump, right upper limb; S50.811D Abrasion of right forearm, subsequent encounter; R25.1 Tremor, unspecified
CPT/HCPCS: 99222-AI; 99232-AI; 99233-AI; 99239; J1815; J8540

== ENCOUNTER 2021-11-28 10:55 | Inpatient (IN) | payer MEDICARE, OTHER ==
[~2021-11-28] VITALS: Ht 162.6 cm; Wt 95.6 kg
[~2021-11-28 10:55] MED LIST changes: +APRESOLINE 10MG10 MG PO; +BIOTENE DRY M1000 ML MM; +CIPRO 500MG TA500 MG PO; +CORTEF 20MG TAB20 MG PO; +COZAAR100 MG PO; +CYMBALTA 30MG30 MG PO; +FLORINEF ACETA0.1 MG PO; +FOLIC ACID 11 MG/TA1 PO; +IPRATROPIUM BROM3 M1 IH; +LAC-HYDRIN121 TP; +LEVEMIR100 U/ML SQ; +LIPITOR 80MG80 MG PO; +LOPRESSOR 225 MG/TAB PO; +LYRICA 25MG CAP25 MG PO; +MYCOSTATIN100000 U/1 TP; +NATURE'S BLEND100 M2 PO; +NORVASC2.5 MG PO; +NOVOLOG 100U100 U/M1 SQ; +PHOSLO667 MG PO; +PRILOSEC 20MG20 MG PO; +PROAIR HFA0.09 MG/AC IH
[2021-11-28 11:28] LABS: BASO # 0.1 K/mm3 (0.0-0.2); BASO % 0.4 % (0.0-2.0); EOS # 0.1 K/mm3 (0.0-0.7); EOS % 0.8 % (0.0-4.0); GRAN # 9.8 K/mm3 (1.4-6.5); GRAN % 80.6 % (42.2-75.2); HEMATOCRIT 44.4 % (42.0-52.0); HEMOGLOBIN 13.7 g/dl (13.5-18.0); LYMPH % 8.3 % (20.0-51.0); MEAN CELL VOLUME 99 fl (80.0-100.0); MEAN CORPUSCULAR HEMOGLOBIN 31 pg (27-31); MEAN CORPUSCULAR HGB CONC 31 g/dl (33.0-37.0); MEAN PLATELET VOLUME 9.5 fl (7.4-10.4); MONO # 1.1 K/mm3 (0.1-0.6); MONO % 9.3 % (1.7-9.3); PLATELET COUNT 182 K/mm3 (130-400); RED BLOOD COUNT 4.49 M/mm3 (4.20-5.60); REDCELL DISTRIBUTION WIDTH-CV 14.6 % (11.5-14.5)
[2021-11-28 11:29] LABS: COLLECTION METHOD CLEAN CATCH
[2021-11-28 11:35] LABS: MUCOUS Present (NOT PRESENT); PH 5 (5-8); SQUAMOUS EPITHELIAL None Seen /hpf (0-10); URINE APPEARANCE Clear (CLEAR/HAZY); URINE BACTERIA None Seen /hpf (NONE SEEN); URINE BILIRUBIN Negative (NEGATIVE); URINE BLOOD 1+ (NEGATIVE); URINE COLOR Yellow (YELLOW); URINE GLUCOSE 1+ (NEGATIVE); URINE KETONE Negative (NEGATIVE); URINE LEUKOCYTE ESTERASE Negative (NEGATIVE); URINE NITRATE Negative (NEGATIVE); URINE PROTEIN(semi-quant) 1+ (NEGATIVE); URINE UROBILINOGEN Negative (NEGATIVE)
[2021-11-28 11:38] LABS: INR 6.1 (0.8-3.0); PROTHROMBIN TIME 68.4 SECONDS (9.7-12.8)
[2021-11-28 11:44] LABS: BILIRUBIN,TOTAL 0.8 mg/dL (0.2-1.2); CALCIUM 9.2 mg/dL (8.4-10.2); CREATININE, serum 0.95 mg/dL (0.72-1.25); POTASSIUM 4.2 mmol/L (3.5-4.5)
[2021-11-28 11:50] LABS: TROPONIN-I 0.012 ng/mL (0.00-0.033)
[2021-11-28 16:18] VITALS: BP 147/80; PULSE 90; TEMP 100.1
[2021-11-28] MEDS ORDERED: KLOR-CON 1010 MEQ PO (17:18)
[2021-11-28] MEDS ORDERED: LASIX 20MG TABL20 MG PO (17:20)
[2021-11-28] MEDS ORDERED: TOPROL XL 25MG25 MG PO (17:21)
--- NOTE | 2021-11-28 18:29 | NUR ---
Pt arrived to the unit this afternoon. Pt is drowsy and confused at times. He is able to answer some questions accurately. Unable to verify home medications, left a message with [facility] to obtain a list. Pt denies any pain. Breathing is even and unlabored on 3L on arrival, titrated to 1.5L O2. No N/V. Pt incontinent of urine, pericare provided. Fall precautions in place, bed alarm on. No needs at this time. Call light within reach.
[2021-11-28 19:34] VITALS: BP 162/68; PULSE 90; TEMP 101.7
[2021-11-28 21:10] VITALS: TEMP 100.8
[2021-11-29 00:08] VITALS: BP 129/61; PULSE 92; TEMP 99.4
[2021-11-29 04:11] VITALS: BP 127/62; PULSE 79; TEMP 98
--- NOTE | 2021-11-29 06:30 | NUR ---
ASSESSMENT COMPLETE FOR THIS SHIFT. PT HAS SLEPT ALMOST THE ENTIRE SHIFT. AT THE BEGINNING OF THE SHIFT, THE AID WENT IN TO GET THE PT'S VS. PT WAS STATING AT 80% ON 1.5L, AID BUMPED HIM UP TO 3L, HOWEVER, PT DIDN'T GET ANY HIGHER THAN 85%. AID CALLED ME TO LET ME KNOW THE PT HAD BEEN STATING BETWEEN 80 TO 85% FOR ABOUT 10 MINUTES NOW AND THAT HE HAD A FEVER OF 101.7. I TOLD THE AID TO BUMP THE PT UP TO 5L. I CALLED RT AND GAVE PT TYLENOL FOR HIS FEVER PER ORDERS. RT HAD THE PT REMAIN AT 5L. PT'S FEVER WAS REDUCED WITH THE TYLENOL. PT WAS A&O X 4 FOR ME. PT DENIED PAIN, PALPITATIONS, SOB OR DIZZINESS. PT STATED HE HAD NO OTHER NEEDS AT THIS TIME. CALL LIGHT WITHIN REACH.
[2021-11-29 06:58] LABS: HEMATOCRIT 38.9 % (42.0-52.0); HEMOGLOBIN 11.9 g/dl (13.5-18.0); MEAN CELL VOLUME 101 fl (80.0-100.0); MEAN CORPUSCULAR HEMOGLOBIN 31 pg (27-31); MEAN CORPUSCULAR HGB CONC 31 g/dl (33.0-37.0); MEAN PLATELET VOLUME 9.4 fl (7.4-10.4); PLATELET COUNT 171 K/mm3 (130-400); RED BLOOD COUNT 3.84 M/mm3 (4.20-5.60); REDCELL DISTRIBUTION WIDTH-CV 14.3 % (11.5-14.5)
[2021-11-29 07:00] LABS: INR 6.8 (0.8-3.0); PROTHROMBIN TIME 76.5 SECONDS (9.7-12.8)
[2021-11-29 07:57] LABS: C-REACTIVE PROTEIN 10.44 mg/dL (0.00-0.50); CALCIUM 8.5 mg/dL (8.4-10.2); CREATININE, serum 0.78 mg/dL (0.72-1.25); MAGNESIUM 2.3 mg/dL (1.6-2.6); POTASSIUM 4.7 mmol/L (3.5-4.5)
--- NOTE | 2021-11-29 08:00 | NUR ---
CRITICAL PT/INR REPORTED TO CATHY GARCIA, CONTINUING TO HOLD COUMADIN
[2021-11-29 08:01] LABS: BAND 8 % (0-10); LYMPHOCYTE 3 % (20.0-51.0); NEUTROPHILS 86 % (42.0-75.2); PLATELET ESTIMATE NORMAL (NORMAL)
[2021-11-29 08:02] LABS: OVALOCYTES 1+
[2021-11-29 08:39] VITALS: BP 129/72; PULSE 65; TEMP 99
--- NOTE | 2021-11-29 08:45 | NUR ---
PT PLEASANT, AOX4, APPEARS DROWSY, POACHER WRINGER OPERATOR EQUAL, BLE DUSKY IN COLOR, EDEMA TO FEET, ASSESSMENT PERFORMED, BREAKFAST BROUGHT IN FOR PT, PT DENIES SOB, N/V/D, CALL LIGHT WITHIN REACH, PT HAS SOME JERKING PRESENT, PT INCONTINENT OF URINE, PERICARE PROVIDED, BRIEF CHANGED, NO OTHER NEEDS
--- NOTE | 2021-11-29 11:07 | NUR ---
The hospitalist notified SW that the patient will likely need SNF. LEON informed the hospitalist that SNF's will not be able to take the patient until 10 days out from his positive test. The patient is COVID positive. SW contacted the patient to discuss discharge plan. This SW had a difficult time understanding the patient. LEON then contacted the patient's son, Kevin (ph#[phone]), to complete intake. The patient lives in [place] with his friend, Carly Adams (ph#[phone]). Kevin reports that the patient has been independent with ADLs and has a cane and walker. He has not been receiving any home health. The patient's PCP is Dr. Matt De La Torre and he receives his medications from [facility]. Kevin reports that the patient does not have a DPOA-HC. Kevin reports that the patient is not and that he is the patient's only child. Kevin is the patient's next of kin. LEON informed Kevin how the doctor is recommending SNF. Kevin is agreeable to SNF and for SW to send referrals to the local facilities. Kevin report that he is in [place] right now, but will be back home later this week. SW to fax referrals to [facility], [facility], and [facility] and will continue to follow. *Discharge plan: SNF*
[2021-11-29 12:14] VITALS: BP 119/57; PULSE 65; TEMP 98.6
[2021-11-29] MEDS ORDERED: GLUCOPHAGE500 MG/TAB PO (14:11)
[2021-11-29] MEDS ORDERED: GLUCOPHAGE XR500 M1 PO (14:12)
[2021-11-29] MEDS ORDERED: NORVASC 5MG5 MG/TAB PO (14:15)
[2021-11-29] MEDS ORDERED: ULTRAM 50MG TAB50 MG PO (14:16)
[2021-11-29] MEDS ORDERED: TYLENOL 325MG325 MG PO (14:17)
[2021-11-29] MEDS ORDERED: PROTONIX20 MG PO (14:18)
[2021-11-29] MEDS ORDERED: NORVASC2.5 MG PO (14:19)
[2021-11-29] MEDS ORDERED: CATAPRES 0.1MG0.1 MG PO (14:21)
[2021-11-29] MEDS ORDERED: APRESOLINE 10MG10 MG PO (14:23)
[2021-11-29] MEDS ORDERED: NOVOLOG 100U100 U/M1 SQ (14:24)
[2021-11-29] MEDS ORDERED: LEVEMIR100 U/ML SQ (14:25)
[2021-11-29] MEDS ORDERED: FOLIC ACID 11 MG/TA1 PO (14:55)
[2021-11-29 16:51] VITALS: BP 106/46; PULSE 71; TEMP 98.9
--- NOTE | 2021-11-29 18:15 | NUR ---
PT PLEASANT, AOX4, TECH FEEDING PT DUE TO PT TREMORS, NEW IV STARTED TO LH 20G, IV TO RAC REMOVED, INCONTINENT CARE PROVIDED, NO OTHER NEEDS
[2021-11-29 20:11] VITALS: BP 108/32; PULSE 81; TEMP 98.1
--- NOTE | 2021-11-29 21:48 | NUR ---
Assessment completed, alert/oriented, vital signs stable, denies pain or discomfort, no resp.difficulty noted at rest/ lungs CTA/diminished bases, remains on 3L oxygen at this time, heart RRR/ 1st degree AV block on tele, patient has tremors, blood sugars in control, I have offered the patient urinal use/ he stated he can do it on his own, nursing reported multiple linen changes today, I helped him reposition and evening meds given ,he denies otehr needs, will continue to monitor, bed alarm set and call light in reach
[2021-11-30 00:31] VITALS: BP 126/50; PULSE 74; TEMP 98.4
[2021-11-30 04:23] VITALS: BP 135/61; PULSE 68; TEMP 98.5
[2021-11-30 07:42] LABS: INR 3.3 (0.8-3.0); PROTHROMBIN TIME 37.1 SECONDS (9.7-12.8)
[2021-11-30 07:48] LABS: C-REACTIVE PROTEIN 6.93 mg/dL (0.00-0.50); CALCIUM 8.7 mg/dL (8.4-10.2); CREATININE, serum 0.84 mg/dL (0.72-1.25); POTASSIUM 4.5 mmol/L (3.5-4.5)
[2021-11-30 07:49] LABS: BASO % 0.1 % (0.0-2.0); GRAN # 15.8 K/mm3 (1.4-6.5); GRAN % 87.8 % (42.2-75.2); HEMATOCRIT 38.6 % (42.0-52.0); HEMOGLOBIN 11.9 g/dl (13.5-18.0); LYMPH # 1.1 K/mm3 (1.2-3.4); LYMPH % 5.8 % (20.0-51.0); MEAN CELL VOLUME 101 fl (80.0-100.0); MEAN CORPUSCULAR HEMOGLOBIN 31 pg (27-31); MEAN CORPUSCULAR HGB CONC 31 g/dl (33.0-37.0); MEAN PLATELET VOLUME 9.9 fl (7.4-10.4); MONO % 5.7 % (1.7-9.3); PLATELET COUNT 205 K/mm3 (130-400); RED BLOOD COUNT 3.84 M/mm3 (4.20-5.60); REDCELL DISTRIBUTION WIDTH-CV 14.2 % (11.5-14.5)
[2021-11-30 07:58] VITALS: BP 138/63; PULSE 65; TEMP 98.3
--- NOTE | 2021-11-30 10:23 | NUR ---
PT RESTING IN BED. MORNING MEDICATIONS GIVEN. SHIFT ASSESSMENT COMPLETED. DENIES ANY PAIN OR NEEDS. A&O X4. CURRENTLY ON 3L NC. WILL CONTINUE TO MONITOR.
--- NOTE | 2021-11-30 11:41 | NUR ---
Referrals faxed to [facility], [facility], and [facility]. Awaiting screens.
[2021-11-30 12:31] VITALS: BP 132/56; PULSE 71; TEMP 98
[2021-11-30] MEDS ORDERED: COUMADIN 5MG5 MG/TAB PO ×2 (15:00→15:01)
--- NOTE | 2021-11-30 15:02 | NUR ---
Pravin, at [facility], reports that they may be able to open a wing for COVID patients that need SNF. Pravin reports that the notes indicate that the patient is receiving Remdesivir until Monday and they would not be able to take him until after he completes that course. They could potentially take him later Monday or Monday.
[2021-11-30 16:52] VITALS: BP 149/60; PULSE 73; TEMP 98.3
--- NOTE | 2021-11-30 20:00 | NUR ---
Patient is sitting in bed watching TV, alert and oriented, VSS, 2L O2 NC. Telemetry in place, NSR. Denies pain, nausea, vomiting or SOB. Assessment completed, no other needs at this time. Call light within reach. Bed alarm on.
[2021-11-30 20:15] VITALS: BP 148/70; PULSE 80; TEMP 98.3
--- NOTE | 2021-11-30 22:15 | NUR ---
Reviewed with JANINE about coumadin aministration scheduled in [facility] INR3.3. Verbal order to provide to pt. Med provided.
[2021-12-01 00:07] VITALS: BP 152/88; PULSE 67; TEMP 98.3
[2021-12-01 04:26] VITALS: BP 156/70; PULSE 65; TEMP 97.4
--- NOTE | 2021-12-01 06:34 | NUR ---
Patient had a calm night, continues at 2L O2 NC. Report given to dayshift RN.
[2021-12-01 08:06] LABS: BASO % 0.1 % (0.0-2.0); EOS % 0.1 % (0.0-4.0); GRAN # 13.4 K/mm3 (1.4-6.5); GRAN % 87.2 % (42.2-75.2); HEMATOCRIT 39.9 % (42.0-52.0); HEMOGLOBIN 12.5 g/dl (13.5-18.0); LYMPH % 6.2 % (20.0-51.0); MEAN CELL VOLUME 97 fl (80.0-100.0); MEAN CORPUSCULAR HEMOGLOBIN 31 pg (27-31); MEAN CORPUSCULAR HGB CONC 31 g/dl (33.0-37.0); MEAN PLATELET VOLUME 9.6 fl (7.4-10.4); MONO # 0.9 K/mm3 (0.1-0.6); MONO % 5.8 % (1.7-9.3); PLATELET COUNT 227 K/mm3 (130-400); REDCELL DISTRIBUTION WIDTH-CV 13.7 % (11.5-14.5)
[2021-12-01 08:07] VITALS: BP 156/75; PULSE 65; TEMP 98
[2021-12-01 08:13] LABS: INR 1.6 (0.8-3.0); PROTHROMBIN TIME 17.9 SECONDS (9.7-12.8)
[2021-12-01 08:20] LABS: CALCIUM 8.9 mg/dL (8.4-10.2); CREATININE, serum 0.82 mg/dL (0.72-1.25); POTASSIUM 4.5 mmol/L (3.5-4.5)
--- NOTE | 2021-12-01 09:21 | NUR ---
PT SITTING UP IN BED, IN PLEASANT MOOD THIS MORNING. MORNING MEDICATIONS GIVEN. SHIFT ASSESSMENT COMPLETED. DENIES ANY PAIN OR NEEDS. CONTINUING TO MONITOR.
[2021-12-01 11:48] VITALS: BP 145/63; PULSE 72; TEMP 97.7
--- NOTE | 2021-12-01 13:42 | NUR ---
Pravin, at [facility], reports that they are working with [facility] to figure out if they can take the patient now or when they can. LEON faxed updates to [facility]. LEON attempted to contact the patient's son, Kevin, to update. LEON left him a voicemail.
--- NOTE | 2021-12-01 16:44 | NUR ---
The patient's son, Kevin, returned LEON's phone call. LEON provided him with an update and how [facility] may be able to accept him tomorrow or soon. Kevin verbalized understanding and was in agreement to the plan. Kevin reports that he will be flying back from [place] tomorrow and will not be reachable until around [id number]. Kevin reports that if we cannot get ahold of him tomorrow, he is agreeable with the patient transferring to [facility] tomorrow.
[2021-12-01 16:54] VITALS: BP 157/81; PULSE 67; TEMP 98.1
[2021-12-01 19:41] VITALS: BP 154/69; PULSE 69; TEMP 97.9
--- NOTE | 2021-12-01 20:00 | NUR ---
Patient is sitting in bed watching television. Alert and oriented x 4, VSS, 1L O2 NC. Telemetry in place NSR, Assessment completed, medications provided. No further needs at this time. Call light within reach.
[2021-12-02 00:12] VITALS: BP 139/78; PULSE 64; TEMP 97.6
[2021-12-02 04:48] VITALS: BP 151/70; PULSE 65; TEMP 98.3
[2021-12-02 05:50] LABS: INR 1.5 (0.8-3.0); PROTHROMBIN TIME 16.8 SECONDS (9.7-12.8)
--- NOTE | 2021-12-02 06:15 | NUR ---
Patient has had an stable night. Continues at 1L O2. All needs met. Report will be given to day RN.
[2021-12-02 08:11] VITALS: BP 191/102; PULSE 64; TEMP 97.6
--- NOTE | 2021-12-02 09:17 | NUR ---
PT RESTING IN BED. MORNING MEDICATIONS GIVEN. SHIFT ASSESSMENT COMPLETED. DENIES PAIN OR NEEDS. IS CURRENTLY ON ROOM AIR. WILL CONTINUE TO MONITOR.
[2021-12-02 11:53] VITALS: BP 151/77; PULSE 66; TEMP 97.6
--- NOTE | 2021-12-02 16:05 | NUR ---
[facility] is still waiting [facility]. SW attempted to update the patient's son, Kevin. LEON left him a voicemail. SW faxed updates to [facility].
[2021-12-02 17:00] VITALS: BP 151/69; PULSE 73; TEMP 98.5
--- NOTE | 2021-12-02 17:06 | NUR ---
Report recieved from TIMA Pat. Patient currently no requiring any O2. Currently sitting up in recliner watching television. Patient denies any pain, discomfort, SOA, or further needs at this time. Call light in reach. Fall percautions in place.
[2021-12-02 19:57] VITALS: BP 126/63; PULSE 74; TEMP 98.3
--- NOTE | 2021-12-02 20:30 | NUR ---
Pt is awake watching TV, alert and oriented x 4, VSS, at RA, Telemetry in place, NSR. Assessment completed, medications provided, assisted to restroom, no problems with ambulation. Denies SOB. No further needs at this time, Call light within reach.
[2021-12-03 00:32] VITALS: BP 150/64; PULSE 56; TEMP 98.7
[2021-12-03 05:01] VITALS: BP 146/60; PULSE 60; TEMP 97.5
--- NOTE | 2021-12-03 06:13 | NUR ---
Pt had an uneventful night. He is able to ambulate from bed to restroom with minimal assistance. States feeling very well with not SOB. Report will be given to day RN.
[2021-12-03 06:32] LABS: BASO % 0.1 % (0.0-2.0); EOS % 0.1 % (0.0-4.0); GRAN # 14.3 K/mm3 (1.4-6.5); GRAN % 83.9 % (42.2-75.2); HEMATOCRIT 41.8 % (42.0-52.0); HEMOGLOBIN 13.4 g/dl (13.5-18.0); LYMPH # 1.3 K/mm3 (1.2-3.4); LYMPH % 7.8 % (20.0-51.0); MEAN CELL VOLUME 95 fl (80.0-100.0); MEAN CORPUSCULAR HEMOGLOBIN 30 pg (27-31); MEAN CORPUSCULAR HGB CONC 32 g/dl (33.0-37.0); MEAN PLATELET VOLUME 9.4 fl (7.4-10.4); MONO # 1.2 K/mm3 (0.1-0.6); MONO % 7.3 % (1.7-9.3); PLATELET COUNT 231 K/mm3 (130-400); RED BLOOD COUNT 4.42 M/mm3 (4.20-5.60); REDCELL DISTRIBUTION WIDTH-CV 13.9 % (11.5-14.5)
[2021-12-03 07:13] LABS: CALCIUM 8.5 mg/dL (8.4-10.2); CREATININE, serum 0.87 mg/dL (0.72-1.25); POTASSIUM 4.3 mmol/L (3.5-4.5)
[2021-12-03 07:39] VITALS: BP 136/66; PULSE 68; TEMP 97.8
--- NOTE | 2021-12-03 08:02 | NUR ---
Pt. progressing w/ plan of care. Pt. ambulated to the door and back. Pt. used the walker and steady gait noted. Pt. brushed teeth. Pt. tolerated well. Meds given and assessment complete. Call light and belongings in reach. Bed alarm on.
[2021-12-03 11:11] LABS: INR 1.7 (0.8-3.0); PROTHROMBIN TIME 19.3 SECONDS (9.7-12.8)
[2021-12-03 11:50] VITALS: BP 120/60; PULSE 72; TEMP 97.8
[2021-12-03] MEDS ORDERED: CLARITIN 1010 MG/TAB PO (12:41)
[2021-12-03] MEDS ORDERED: B-121000 MCG PO (12:42)
[2021-12-03] MEDS ORDERED: VITAMIN D31000 I1 PO (12:42)
[2021-12-03] MEDS ORDERED: MULTI VITAMINS1 TAB PO (12:42)
[2021-12-03] MEDS ORDERED: DECADRON6 MG PO (12:43)
[2021-12-03] MEDS ORDERED: PROTONIX 40MG T40 MG PO (12:43)
[2021-12-03] MEDS ORDERED: RT ADVAIR 228 DISKUS IH (12:44)
[2021-12-03] MEDS ORDERED: ROBITUSSIN100 MG/5 M PO (12:45)
[2021-12-03] MEDS ORDERED: LASIX 20MG TABL20 MG PO (12:45)
[2021-12-03] MEDS ORDERED: ATARAX 25MG25 MG/TAB PO (12:46)
[2021-12-03] MEDS ORDERED: TYLENOL 325MG325 MG PO (12:46)
[2021-12-03] MEDS ORDERED: COZAAR 50MG50 MG/TAB PO (12:47)
[2021-12-03] MEDS ORDERED: TOPROL XL 25MG25 MG PO (12:47)
[2021-12-03] MEDS ORDERED: ASPIRIN 81M81 MG/TA2 PO (12:47)
[2021-12-03] MEDS ORDERED: LIPITOR 80MG80 MG PO (12:47)
[2021-12-03] MEDS ORDERED: FLOMAX 0.40.4 MG/CAP PO (12:48)
[2021-12-03] MEDS ORDERED: COUMADIN 5MG5 MG/TAB PO ×2 (12:48→12:51)
[2021-12-03] MEDS ORDERED: PROVENTIL0.09 MG/A1 IH (12:49)
--- NOTE | 2021-12-03 13:24 | NUR ---
Pravin, at [facility], reports that they are able to accept the patient today. LEON notified the clinical team. LEON contacted and updated the patient's son, Kevin. Kevin is in agreement to the plan. LEON read the IM form outloud to Kevin over the phone. Kevin verbalized understanding and gave SW approval to sign the form on his behalf. The patient is to discharge today, 12/03, to [facility] for a skilled stay. Transportation was scheduled at 1400, via [facility]. LEON informed the patient's RN and the son, Kevin, of the time. No additional needs at this time.
--- NOTE | 2021-12-03 14:20 | NUR ---
Pt. discharged to [facility]. IV removed, site c/d/i. Pt. and son updated on plan of care. Pt. left unit w/ [facility].
--- NOTE | 2021-12-03 15:58 | NUR ---
This RN attempted to call nurse from [facility] to call report. There was no answer. This nurse left her name and phone number to be called back to provide report.
== END 2021-12-03 14:25 | DRG 177 ==
LOC: COL.ER 10:55 → MEDICAL 12:52
PROVIDERS: Physician Assistant; Student in an Organized Health Care Education/Training Program; ADMIT Internal Medicine
DX: U07.1 COVID-19 (principal); J96.01 Acute respiratory failure with hypoxia; J12.82 Pneumonia due to coronavirus disease 2019; I48.20 Chronic atrial fibrillation, unspecified; J98.11 Atelectasis; G47.33 Obstructive sleep apnea (adult) (pediatric); I10 Essential (primary) hypertension; E11.9 Type 2 diabetes mellitus without complications; G89.29 Other chronic pain; R79.1 Abnormal coagulation profile; I27.20 Pulmonary hypertension, unspecified; I25.2 Old myocardial infarction; Z79.01 Long term (current) use of anticoagulants; Z79.82 Long term (current) use of aspirin; Z79.4 Long term (current) use of insulin; Z23 Encounter for immunization
CPT/HCPCS: 99223-AI; 99232-AI; 99233-AI; 99239; J0696; J1815; J8540

== ENCOUNTER → 2021-12-14 | Outpatient (CLI) | payer MEDICARE, OTHER ==
[~2021-12-14] MED LIST changes: +KLOR-CON 1010 MEQ PO; +PROTONIX 40MG T40 MG PO; +PROVENTIL0.09 MG/A1 IH; +ROBITUSSIN100 MG/5 M PO
[2021-12-14 09:26] LABS: BASO % 0.2 % (0.0-2.0); EOS # 0.3 K/mm3 (0.0-0.7); GRAN # 9.3 K/mm3 (1.4-6.5); GRAN % 71.6 % (42.2-75.2); HEMATOCRIT 41.9 % (42.0-52.0); HEMOGLOBIN 13.2 g/dl (13.5-18.0); LYMPH # 2.1 K/mm3 (1.2-3.4); LYMPH % 15.8 % (20.0-51.0); MEAN CELL VOLUME 96 fl (80.0-100.0); MEAN CORPUSCULAR HEMOGLOBIN 30 pg (27-31); MEAN CORPUSCULAR HGB CONC 32 g/dl (33.0-37.0); MEAN PLATELET VOLUME 9.9 fl (7.4-10.4); MONO # 1.3 K/mm3 (0.1-0.6); MONO % 9.8 % (1.7-9.3); PLATELET COUNT 244 K/mm3 (130-400); RED BLOOD COUNT 4.37 M/mm3 (4.20-5.60); REDCELL DISTRIBUTION WIDTH-CV 14.4 % (11.5-14.5)
== END ==
LOC: ZCOL.LAB 09:19
PROVIDERS: Internal Medicine
DX: D72.829 Elevated white blood cell count, unspecified (principal)

== ENCOUNTER 2022-01-19 15:25 | Emergency (ER) | payer MEDICARE, OTHER ==
[~2022-01-19] VITALS: Ht 162.6 cm; Wt 100.0 kg
[2022-01-19 15:38] VITALS: TEMP 98.1
[2022-01-19 15:58] LABS: BASO % 0.6 % (0.0-2.0); EOS # 0.1 K/mm3 (0.0-0.7); EOS % 1.8 % (0.0-4.0); GRAN # 4.8 K/mm3 (1.4-6.5); GRAN % 66.9 % (42.2-75.2); HEMATOCRIT 37.1 % (42.0-52.0); HEMOGLOBIN 11.6 g/dl (13.5-18.0); LYMPH # 1.7 K/mm3 (1.2-3.4); LYMPH % 22.9 % (20.0-51.0); MEAN CELL VOLUME 98 fl (80.0-100.0); MEAN CORPUSCULAR HEMOGLOBIN 31 pg (27-31); MEAN CORPUSCULAR HGB CONC 31 g/dl (33.0-37.0); MONO # 0.5 K/mm3 (0.1-0.6); MONO % 7.5 % (1.7-9.3); PLATELET COUNT 190 K/mm3 (130-400); RED BLOOD COUNT 3.78 M/mm3 (4.20-5.60); REDCELL DISTRIBUTION WIDTH-CV 15.7 % (11.5-14.5)
[2022-01-19 16:15] LABS: INR 2.8 (0.8-3.0); PROTHROMBIN TIME 31.6 SECONDS (9.7-12.8)
[2022-01-19 17:12] VITALS: BP 174/84; PULSE 60
== END 2022-01-19 17:12 | disposition home or self-care (01) ==
LOC: COL.ER 15:25
PROVIDERS: Emergency Medicine
DX: R04.0 Epistaxis (principal); I48.91 Unspecified atrial fibrillation; E11.9 Type 2 diabetes mellitus without complications; I10 Essential (primary) hypertension; Z79.01 Long term (current) use of anticoagulants; Z79.899 Other long term (current) drug therapy

== ENCOUNTER → 2022-04-04 | Outpatient (CLI) | payer MEDICARE, OTHER | LOC: COL.RAD 10:27 | DX: M47.812 Spondylosis without myelopathy or radiculopathy, cervical region (principal); M47.814 Spondylosis without myelopathy or radiculopathy, thoracic region; M48.02 Spinal stenosis, cervical region ==

== ENCOUNTER → 2022-04-11 | Outpatient (CLI) | payer MEDICARE, OTHER | LOC: COL.CARD 09:17 | DX: R25.9 Unspecified abnormal involuntary movements (principal) ==

== ENCOUNTER 2024-05-09 11:29 | Inpatient (IN) | payer MEDICARE, OTHER ==
[~2024-05-09] VITALS: Ht 157.5 cm; Wt 75.0 kg
[2024-05-09] MEDS ORDERED: NS 500 ML IV ONE (11:45)
[2024-05-09] MEDS ORDERED: LR 1,000 ML IV SCH (14:00)
[2024-05-09] MEDS ORDERED: Polyethylene Glycol 3350 17 GM PDS PO PRN (14:00)
[2024-05-09] MEDS ORDERED: Ondansetron 4 MG/2 ML VIAL IV PRN (14:00)
[2024-05-09] MEDS ORDERED: Docusate Sodium 100 MG CAP PO PRN (14:00)
[2024-05-09] MEDS ORDERED: Acetaminophen 325 MG TAB PO PRN (14:00)
[2024-05-09] MEDS ORDERED: LIPITOR 80MG80 MG PO (14:06)
[2024-05-09] MEDS ORDERED: LIORESAL 1010 MG/TAB PO (14:21)
[2024-05-09] MEDS ORDERED: KEPPRA 500MG500 MG PO (14:23)
[2024-05-09 15:00] VITALS: BP 169/77; PULSE 90; TEMP 98.7
[2024-05-09] MEDS ORDERED: PROAMATINE 5MG T5 MG PO (15:23)
[2024-05-09 17:48] VITALS: BP_SYST 169
--- NOTE | 2024-05-09 18:25 | NUR ---
Patient admitted to unit around 1500. Patient alert and oriented x4. Complains of burning pain to left ribs from fall, PRN Tylenol administered and effective. Skin appears dry and intact. Bilateral lower extremities noted to have tough/darkened skin. Stable on room air. Son at bedside. Patient states he lives with "lady friend and her son". Admits to weight loss recently since beginning of year, has lost approx. 50lb. States his appetite has been low, son states this is due to prostate cancer. Dietary consult placed during admission intake. Patient utilizing urinal independently, urine is clear/yellow. Denies dizziness. Call light within reach, fall precautions in place.
--- NOTE | 2024-05-09 18:30 | NUR ---
Cardiology in to see patient this evening, loop recorder placed at bedside. Site covered by gauze and paper tape, appears CDI with no blood or swelling noted. Patient denies pain.
[2024-05-09 20:00] VITALS: BP 150/83; PULSE 78; TEMP 98
[2024-05-09] MEDS ORDERED: Amiodarone 200 MG TAB PO SCH (21:00)
[2024-05-09] MEDS ORDERED: levETIRAcetam 500 MG TAB PO SCH (21:00)
[2024-05-09 21:10] VITALS: BP_SYST 137
[2024-05-09 23:09] VITALS: BP 137/74; PULSE 58; TEMP 97.8
[2024-05-10] VITALS (11 sets, daily range): BP systolic 124–179; BP diastolic 7–93; PULSE 55–67; TEMP 97.8–98.7
--- NOTE | 2024-05-10 02:40 | NUR ---
PT ALERT AND ORIENTED X4. RESTING COMFORTABLY IN BED WATCHING TV. VSS, SHIFT ASSESSSMENT COMPLETE.HAS SIGNIFICANT BRUISE TO LEFT EYE FROM RECENT FALL PT DENIES PAIN IN THE AFFECTED EYE OR ANY PAIN AT ALL. ALL HS MEDS ADMINISTERED, FALL PRECAUTIONS IN PLACE, CALL LIGHT WITHIN REACH. IV TO RFA PATENT. DENIES NEED FURTHER AT THIS TIME.
[2024-05-10 06:31] LABS: BASO % 0.4 % (0.0-2.0); EOS # 0.2 K/mm3 (0.0-0.7); EOS % 1.7 % (0.0-4.0); GRAN # 6.2 K/mm3 (1.4-6.5); GRAN % 69.4 % (42.2-75.2); HEMOGLOBIN 11.8 g/dl (13.5-18.0); LYMPH # 1.9 K/mm3 (1.2-3.4); LYMPH % 20.8 % (20.0-51.0); MEAN CELL VOLUME 101 fl (80.0-100.0); MEAN CORPUSCULAR HEMOGLOBIN 33 pg (27-31); MEAN CORPUSCULAR HGB CONC 33 g/dl (33.0-37.0); MEAN PLATELET VOLUME 9.5 fl (7.4-10.4); MONO # 0.7 K/mm3 (0.1-0.6); MONO % 7.5 % (1.7-9.3); PLATELET COUNT 156 K/mm3 (130-400); RED BLOOD COUNT 3.56 M/mm3 (4.20-5.60); REDCELL DISTRIBUTION WIDTH-CV 12.7 % (11.5-14.5)
[2024-05-10] MEDS ORDERED: Cyanocobalamin (Vit B-12) 1,000 MCG TAB PO SCH (09:00)
[2024-05-10] MEDS ORDERED: Atorvastatin 80 MG TAB PO SCH (09:00)
--- NOTE | 2024-05-10 10:31 | NUR ---
D: Event Marketing Intern stopped by room on rounds. A: Pt was resting and content. Pt rec a phone call while process manager was in the room, process manager encouraged pt to take the call because family interactions are important. Pt stated he has no needs right now. P: Event Marketing Intern informed pt that if he needed anything from the process manager area to let his nurse know. Event Marketing Intern will follow up as needed.
--- NOTE | 2024-05-10 13:41 | NUR ---
jackscrew worker met with pt to discuss discharge planning. Pt reports he lives with a friend and her child in [place]. He see Dr. De La Torre for PCP needs and obtains medications from [facility] with no issues. He is independent with ADLS and uses a FWW, cane, and rolator for DME. He does not have a DPOA-HC and reports his son, Kevin [phone] as his contact. Son later arrived. PT/OT Pending due to orthostatic concerns Discharge Plan: tbd, home
--- NOTE | 2024-05-10 18:00 | NUR ---
Patient sitting up in bed, A&Ox3. VSS. IV CDI, fluids infusing. Denies pain and discomfort. Call light within reach. Bed alarm on
--- NOTE | 2024-05-10 20:30 | NUR ---
Initial shift assessment done,denies pain, denies SOB, MAURICE martinez on, talked with pt about SCD,s - pt refusing them at this time,pt has kyphosis, trying to make him comfortable in bed- does not look comfortable but states hes fine, VSS, very pleasant, using urinal as needed to void, tele on NSR, IV fluids of LR at 75cc/hr.
[2024-05-11] VITALS (12 sets, daily range): BP systolic 154–184; BP diastolic 76–88; PULSE 55–62; TEMP 97.2–99.2
--- NOTE | 2024-05-11 05:55 | NUR ---
No requests, states slept fair, B/P is starting to raise slightly 174/88 at this time,Tele remains NSR.
[2024-05-11 06:43] LABS: BASO # 0.1 K/mm3 (0.0-0.2); BASO % 0.5 % (0.0-2.0); EOS # 0.3 K/mm3 (0.0-0.7); GRAN # 7.2 K/mm3 (1.4-6.5); GRAN % 72.6 % (42.2-75.2); HEMATOCRIT 37.7 % (42.0-52.0); HEMOGLOBIN 12.5 g/dl (13.5-18.0); LYMPH # 1.6 K/mm3 (1.2-3.4); LYMPH % 16.3 % (20.0-51.0); MEAN CELL VOLUME 100 fl (80.0-100.0); MEAN CORPUSCULAR HEMOGLOBIN 33 pg (27-31); MEAN CORPUSCULAR HGB CONC 33 g/dl (33.0-37.0); MEAN PLATELET VOLUME 9.7 fl (7.4-10.4); MONO # 0.7 K/mm3 (0.1-0.6); MONO % 7.4 % (1.7-9.3); PLATELET COUNT 174 K/mm3 (130-400); RED BLOOD COUNT 3.76 M/mm3 (4.20-5.60); REDCELL DISTRIBUTION WIDTH-CV 12.7 % (11.5-14.5)
[2024-05-11 07:07] LABS: ALBUMIN 3.3 g/dL (3.4-4.8); CALCIUM 9.1 mg/dL (8.4-10.2); CREATININE, serum 0.81 mg/dL (0.72-1.25); POTASSIUM 4.4 mEq/L (3.5-4.5); TOTAL PROTEIN 5.9 g/dl (6.2-8.1)
--- NOTE | 2024-05-11 09:22 | NUR ---
Patient resting in bed, alert and oriented x 4, just finishing his breakfast. Refuses any pain or discomfort. Telemetry in place SR, BBB, PqT. Getting fluids per orders. Assessment completed, meds given. Pt with High blood pressure. This morning SBP 178 and over 160 last night. PT just arrives to work with him. No further needs at this time. Call light within reach.
--- NOTE | 2024-05-11 11:41 | NUR ---
Patient assisted to the commode. Very stable transfering using the walker. Medium BM.
--- NOTE | 2024-05-11 19:32 | NUR ---
Initial shift assessment done- Denies pain, denies SOB, Pleasant, alert/oriented x4, watching some TV, states probably going home tomorrow, no requests at this time, denies need for a snack tonight. Bed alarm on. Understands to call for assistance to BSC, states did have a good BM today.
[2024-05-11] MEDS ORDERED: Atorvastatin 40 MG TAB PO SCH (21:00)
[2024-05-12] VITALS (13 sets, daily range): BP systolic 136–183; BP diastolic 77–94; PULSE 54–61; TEMP 98.1–98.9
--- NOTE | 2024-05-12 06:03 | NUR ---
Did sleep fairly well last night- no requests. Up to BSC x1 during the night- otherwise did use the urinal. No stools.
[2024-05-12 06:25] LABS: BASO % 0.4 % (0.0-2.0); EOS # 0.4 K/mm3 (0.0-0.7); EOS % 3.3 % (0.0-4.0); GRAN # 7.3 K/mm3 (1.4-6.5); GRAN % 69.5 % (42.2-75.2); HEMATOCRIT 37.5 % (42.0-52.0); HEMOGLOBIN 12.6 g/dl (13.5-18.0); LYMPH % 18.9 % (20.0-51.0); MEAN CELL VOLUME 100 fl (80.0-100.0); MEAN CORPUSCULAR HEMOGLOBIN 34 pg (27-31); MEAN CORPUSCULAR HGB CONC 34 g/dl (33.0-37.0); MEAN PLATELET VOLUME 9.6 fl (7.4-10.4); MONO # 0.8 K/mm3 (0.1-0.6); MONO % 7.5 % (1.7-9.3); PLATELET COUNT 186 K/mm3 (130-400); RED BLOOD COUNT 3.74 M/mm3 (4.20-5.60); REDCELL DISTRIBUTION WIDTH-CV 12.6 % (11.5-14.5)
--- NOTE | 2024-05-12 06:45 | NUR ---
PT RESTING IN BED WATCHING TV. PT IS ON RA. PT IS SR ON TELE. PT AXOX4. PT HAS CALL LIGHT AND INSTRUCTED TO CALL WITH ALL NEED. BEDALARM ACTIVE.
[2024-05-12 07:33] LABS: ALBUMIN 3.3 g/dL (3.4-4.8); BILIRUBIN,TOTAL 1.2 mg/dL (0.2-1.2); CALCIUM 8.9 mg/dL (8.4-10.2); CREATININE, serum 0.87 mg/dL (0.72-1.25); POTASSIUM 4.2 mEq/L (3.5-4.5); TOTAL PROTEIN 5.9 g/dl (6.2-8.1)
--- NOTE | 2024-05-12 09:07 | NUR ---
CALLED LAB REGARDING B12, FOLATE, AND CORTISOL ORDERED 05/10. LAB STATES THEY HAVE A SAMPLE AND WILL RUN B12 AND FOLATE AND SEND OUT CORTISOL.
[2024-05-12] MEDS ORDERED: Fludrocortisone 0.1 MG TAB PO SCH (11:45)
--- NOTE | 2024-05-12 15:47 | NUR ---
1030-WHEN WORKING WITH PT, ORTHOSTATIC BP'S CHECKED. BP WAS 120'S LAYING AND DROPPED 60'S SITTING. 1100-SPOKE WITH REGARDING HTN WHEN RESTING AND POSITIVE ORTHO'S. STATES HE WILL ADDRESS AND ORDERED NEW MEDS.
[2024-05-12] MEDS ORDERED: Hydrocortisone 10 MG TAB PO SCH (17:00)
--- NOTE | 2024-05-12 18:57 | NUR ---
PATIENT RESTING IN BED WITH TV ON WITH NO FAMILY PRESENT WITH NO ACUTE DISTRESS NOTED. PATIENT ON ROOM AIR, INT TO RIGHT FOREARM INTACT WITH NO COMPLICATIONS NOTED. TELEMETRY INTACT. PATIENT DENIES ANY NEEDS AT THIS TIME. BEDSIDE SHIFT REPORT COMPLETED WITH TAMARA ALFRED. BED IN LOW POSITION WITH WHEELS LOCKED WITH RAILS UP X3 AND CALL LIGHT WITHIN REACH. BED ALARM ON.
--- NOTE | 2024-05-12 19:35 | NUR ---
PATIENT RESTING SITTING UP IN BED WITH TV ON WITH NO FAMILY PRESENT WITH NO ACUTE DISTRESS NOTED. PATIENT ON ROOM AIR. INT TO RIGHT FOREARM INTACT WITH NO ACOMPLICATIONS NOTED. BRUSING AROUND LEFT EYE NOTED AND ABRASION TO RIGHT FOREARM IN STAGES OF HEALING. TELEMETRY INTACT. ASSESSMENT COMPLETED AT THIS TIME. PATIENT TOLERATED WELL. URINAL EMPITED OF 125 ML CLEAR YELLOW URINE. PATIENT REQUESTED ICE AND WAS FILLED IN PITCHER. PATIENT DENIES ANY OTHER NEEDS. BED IN LOW POSITION WITH WHEELS LOCKED WITH RAILS UP X3 AND CALL LIGHT WITHIN REACH. BED ALARM ON.
--- NOTE | 2024-05-12 22:31 | NUR ---
PATIENT RESTING WITH EYES CLOSED IN BED WITH TV ON WITH NO FAMILY PRESENT WITH NO ACUTE DISTRESS NOTED. PATIENT EASILY AROUSED. PATIENT ON ROOM AIR. TELEMETRY INTACT. INT TO RIGHT FOREARM INTACT. MEDICATION ADMINISTRATION COMPLETED AT THIS TIME. PATIENT TOLERATED WELL. URINAL EMPTIED OF 200 ML OF CLEAR YELLOW URINE. PATIENT DENIES ANY OTHER NEEDS. BED IN LOW POSITION WITH WHEELS LOCKED WITH RAILS UP X3 AND CALL LIGHT WITHIN REACH. BED ALARM ON.
[2024-05-13] VITALS (13 sets, daily range): BP systolic 101–172; BP diastolic 68–87; PULSE 52–101; TEMP 98–98.8
--- NOTE | 2024-05-13 10:32 | NUR ---
Pt awake, alert and oriented. Sitting in chair, able to stand/transfer with assistance of PT. Still feels lightheaded at times when standing. Fall precautions in place, chair alarm on. Call light within reach.
--- NOTE | 2024-05-13 15:30 | NUR ---
Canoe Inspector Final attended clinical rounds with the team and Hospitalist discussed post acute rehab and option of [facility]. LEON followed up with patient to discuss options and provide Medicare.gov list of SNF options. Patient's preferences are 1) [facility] and 2) [facility]. LEON contacted BEULAH Lester Director to give referral then sent referral to P[facility] via secure email. [facility] notified LEON that patient has [employer] and requires prior auth. [facility] stated once auth is obtained they can accept. LEON discussed with BEULAH Lester Director and there are concerns that [employer] may not authorize based on patient's current function. LEON faxed clinicals to [facility] to request auth for SNF. LEON also contacted patient's son, Kevin to provide update. Discharge Plan: SNF, pending insurance authorization
--- NOTE | 2024-05-13 18:50 | NUR ---
PATIENT SITTING UP TALKING ON TELEPHONE WITH TV ON WITH NO FAMILY PRESENT WITH NO ACUTE DISTRESS NOTED. PATIENT ON ROOM AIR. INT TO RIGHT FOREARM INTACT WITH NO COMPLICATIONS NOTED. TELEMETRY INTACT. BEDSIDE SHIFT REPORT COMPLETED WITH FABIANA ALFRED. PATIENT DENIES ANY NEEDS AT THIS TIME. BED IN LOW POSITION WITH WHEELS LOCKED WITH RAILS UP X3 AND CALL LIGHT WITHIN REACH. BED ALARM ON.
--- NOTE | 2024-05-13 20:20 | NUR ---
PATIENT RESTING SITTING UP IN BED WITH TV ON WITH NO FAMILY PRESENT WITH NO ACUTE DISTRESS NOTED. RESPIRATIONS EVEN AND UNLABORED. PATIENT ON ROOM AIR. INT TO RIGHT FOREARM INTACT WITH NO COMPLICATIONS NOTED. ASSESSMENT AND MEDICATION ADMINISTRATION COMPLETED AT THIS TIME. PATIENT TOLERATED WELL. URINAL EMPTIED OF 250 CLEAR YELLOW URINE. PATIENT DENIES ANY NEEDS AT THIS TIME. BED IN LOW POSITION WITH WHEELS LOCKED WITH RAILS UP X3 AND CALL LIGHT WITHIN REACH. BED ALARM ON.
--- NOTE | 2024-05-13 20:50 | NUR ---
HANDOFF REPORT GIVEN TO REGINO ALFRED AT THIS TIME.
[2024-05-13] MEDS ORDERED: Fludrocortisone 0.1 MG TAB PO SCH (21:00)
[2024-05-14] VITALS (8 sets, daily range): BP systolic 80–168; BP diastolic 44–85; PULSE 50–69; TEMP 97.9–98.5
[2024-05-14] MEDS ORDERED: PROAMATINE10 MG PO (09:22)
[2024-05-14] MEDS ORDERED: ASPIRIN E.C. 8181 MG PO (09:23)
[2024-05-14] MEDS ORDERED: FLORINEF ACETA0.1 MG PO (09:24)
[2024-05-14] MEDS ORDERED: PACERONE200 MG PO (09:31)
--- NOTE | 2024-05-14 11:42 | NUR ---
Grand Scribe received a message from [employer] with auth (ref#[id number]) for [facility]. SW attended clinical rounds with the team and patient is agreeable to discharge today to [facility]. SW met with patient to present and review IM. Patient verbalized understanding and gave signature. SW student placed form in chart and provided copy to patient. LEON also discussed DPOA-HC and patient stated he would like to discuss this with his son, Kevin before completing one. LEON set transport time for 1430 and provided time to patient's son, Kevin. LEON then sent discharge orders to Pravin at [facility] via secure email. Discharge Plan: [facility] SNF
--- NOTE | 2024-05-14 11:56 | NUR ---
Patient alert and oriented x4 this morning. Denies pain. Tolerating activity around room well, currently in recliner at this time. PCT notified this nurse around 1030 that patient's BP was 70s/50s. BP checked manually and noted to be 82/48. Hospitalist notified. No new orders at this time, instructed to re-check BP in one hour. Patient denies sypmtoms at this time. Call light within reach, fall precautions in place.
--- NOTE | 2024-05-14 12:27 | NUR ---
BP reassessed following last low result. 80/44 at this time. Hospitalist updated.
--- NOTE | 2024-05-14 14:55 | NUR ---
No new orders following low BP due to patient being asymptomatic. Discharge orders obtained this morning. Patient assisted in getting dressed, IV discontinued to right forearm with no complications, tip intact. Telmetry off. Belongings packed. Patient picked up by [facility] staff around 2:30 and patient escorted out via wheelchair. Attempted to call report with no answer, voicemail left with name/number/reason for calling/and location. Transfer paperwork sent with [facility] staff.
== END 2024-05-14 14:30 | DRG 312 ==
LOC: COL.ER 11:29 → MEDICAL 14:07
PROVIDERS: ADMIT Internal Medicine
DX: I95.1 Orthostatic hypotension (principal); I48.91 Unspecified atrial fibrillation; Z79.01 Long term (current) use of anticoagulants; I27.20 Pulmonary hypertension, unspecified; M40.209 Unspecified kyphosis, site unspecified; C61 Malignant neoplasm of prostate; G47.33 Obstructive sleep apnea (adult) (pediatric); G20.A1 Parkinson's disease without dyskinesia, without mention of fluctuations
CPT/HCPCS: OP; C1764; G0378; J1650; J7040; J7120

== ENCOUNTER 2024-09-09 13:46 | Inpatient (IN) | payer MEDICARE ==
[~2024-09-09] VITALS: Ht 162.6 cm; Wt 71.8 kg
[~2024-09-09 13:46] MED LIST changes: +ASPIRIN E.C. 8181 MG PO; +KEPPRA 500MG500 MG PO; +LIORESAL 1010 MG/TAB PO; +PACERONE200 MG PO; +PROAMATINE 5MG T5 MG PO; +PROAMATINE10 MG PO
[2024-09-09 14:51] LABS: BASO % 0.3 % (0.0-2.0); EOS # 0.1 K/mm3 (0.0-0.7); EOS % 1.1 % (0.0-4.0); GRAN % 80.9 % (42.2-75.2); HEMATOCRIT 39.2 % (42.0-52.0); HEMOGLOBIN 13.2 g/dl (13.5-18.0); LYMPH # 1.3 K/mm3 (1.2-3.4); LYMPH % 10.8 % (20.0-51.0); MEAN CELL VOLUME 98 fl (80.0-100.0); MEAN CORPUSCULAR HEMOGLOBIN 33 pg (27-31); MEAN CORPUSCULAR HGB CONC 34 g/dl (33.0-37.0); MEAN PLATELET VOLUME 9.2 fl (7.4-10.4); MONO # 0.8 K/mm3 (0.1-0.6); MONO % 6.7 % (1.7-9.3); PLATELET COUNT 194 K/mm3 (130-400); RED BLOOD COUNT 3.99 M/mm3 (4.20-5.60); REDCELL DISTRIBUTION WIDTH-CV 14.9 % (11.5-14.5)
[2024-09-09 15:01] LABS: INR 1.1 (0.8-3.0); PROTHROMBIN TIME 12.3 SECONDS (9.7-12.8)
[2024-09-09 15:04] LABS: PARTIAL THROMBOPLASTIN TIME 31.2 SECONDS (26.0-37.0)
[2024-09-09 15:07] LABS: D-DIMER < 200.00 ng/mLDDu (200-230)
[2024-09-09 15:13] LABS: ALBUMIN 3.7 g/dL (3.4-4.8); BILIRUBIN,TOTAL 1.2 mg/dL (0.2-1.2); CALCIUM 8.9 mg/dL (8.4-10.2); CREATININE, serum 1.27 mg/dL (0.72-1.25); MAGNESIUM 1.9 mg/dL (1.6-2.6); TOTAL PROTEIN 6.5 g/dl (6.2-8.1)
[2024-09-09 15:17] LABS: POTASSIUM 2.8 mEq/L (3.5-4.5)
[2024-09-09 15:21] LABS: TROPONIN-I 0.054 ng/mL (0.00-0.033)
[2024-09-09 16:09] LABS: TSH w REFLEX 0.351 uIU/mL (0.350-4.940)
[2024-09-09 16:17] LABS: COLLECTION METHOD CLEAN CATCH
[2024-09-09 16:25] LABS: PH 6.5 (5.0-8.5); URINE APPEARANCE CLOUDY (CLEAR/HAZY); URINE BLOOD TRACE (NEGATIVE); URINE COLOR YELLOW (YELLOW); URINE GLUCOSE NEGATIVE (NEGATIVE); URINE KETONE NEGATIVE (NEGATIVE); URINE NITRATE NEGATIVE (NEGATIVE); URINE PROTEIN(semi-quant) 1+ (NEGATIVE); URINE UROBILINOGEN 0.2 E.U/dL (0.2-1.0)
[2024-09-09] MEDS ORDERED: Potassium Chloride 100 ML IV ONE (19:30)
[2024-09-09] MEDS ORDERED: Ondansetron 4 MG/2 ML VIAL IV PRN (19:45)
[2024-09-09] MEDS ORDERED: cefTRIAXone 1 G in Water For Injection,Sterile 10 ML IV ONE (19:45)
[2024-09-09] MEDS ORDERED: hydrALAZINE 20 MG/ML 1 ML VIAL IV ONE (19:45)
[2024-09-09] MEDS ORDERED: hydrALAZINE 20 MG/ML 1 ML VIAL IV PRN (19:45)
[2024-09-09] MEDS ORDERED: Docusate Sodium 100 MG CAP PO PRN (19:45)
[2024-09-09] MEDS ORDERED: Bisacodyl 5 MG TAB PO PRN (19:45)
[2024-09-09] MEDS ORDERED: NS 1,000 ML IV SCH (19:45)
[2024-09-09] MEDS ORDERED: Acetaminophen 325 MG TAB PO PRN (19:45)
[2024-09-09] MEDS ORDERED: Polyethylene Glycol 3350 17 GM PDS PO PRN (19:45)
[2024-09-09] MEDS ORDERED: *Potassium Replacement Protocol MC SCH (20:00)
[2024-09-09] MEDS ORDERED: Potassium Bicarbonate/Citrate 20 MEQ Effervescent TAB PO SCH (20:00)
[2024-09-09 20:08] LABS: CHOLESTEROL RISK RATIO 2.5
[2024-09-09 21:26] VITALS: BP 127/62; PULSE 61; TEMP 97.6
--- NOTE | 2024-09-09 21:26 | NUR ---
PATIENT ADMITTED TO ROOM 315., BROUGHT UP BY MILL RECORDER IN BED. VS ARE: 97.6 TEMP, BP 127/62, PULSE 61, RR 18 AND 02 IS 95% ON RA. PATIENT IS A&0 X 4 AND NEUROS ARE WNL. PATIENT ORIENTED TO ROOM AND MED REC COMPLETE. LT EYE LACERATION NOTED-EDGES WELL APPROXIMATED.
[2024-09-09] MEDS ORDERED: LIORESAL 1010 MG/TAB PO (22:05)
[2024-09-09] MEDS ORDERED: VENTOLIN0.09 MG IH (22:07)
--- NOTE | 2024-09-09 23:05 | NUR ---
CALL PLACED TO HOSPITALIST ERNESTO FOR CRITICAL TROPONIN 0.046. NO NEW ORDERS GIVEN.
[2024-09-10] VITALS (13 sets, daily range): BP systolic 122–165; BP diastolic 61–93; PULSE 58–65; TEMP 97.9–99.1
[2024-09-10] MEDS ORDERED: FLORINEF ACETA0.1 MG PO (00:14)
[2024-09-10] MEDS ORDERED: CORDARONE200 MG/TAB PO (00:15)
--- NOTE | 2024-09-10 02:41 | NUR ---
CALL PLACED HOSPITALIST, ERNESTO. PATIENT POSITIVE FOR ORTHOSTATICS AND ACHS ACCUCHECKS NEEDED. TORB TO PLACE ASHS ACCUCHECKS GIVEN.
[2024-09-10] MEDS ORDERED: PROAMATINE10 MG PO ×2 (03:28)
--- NOTE | 2024-09-10 05:05 | NUR ---
CALL PLACED TO HOSPITALISTERNESTO EKG RESULTED QTC OF 508. TORB TO HOLD AMIODARONE GIVEN.
[2024-09-10 07:24] LABS: BASO % 0.3 % (0.0-2.0); EOS # 0.2 K/mm3 (0.0-0.7); EOS % 1.9 % (0.0-4.0); GRAN # 7.1 K/mm3 (1.4-6.5); GRAN % 74.5 % (42.2-75.2); HEMOGLOBIN 13.5 g/dl (13.5-18.0); LYMPH # 1.5 K/mm3 (1.2-3.4); LYMPH % 15.9 % (20.0-51.0); MEAN CELL VOLUME 97 fl (80.0-100.0); MEAN CORPUSCULAR HEMOGLOBIN 34 pg (27-31); MEAN CORPUSCULAR HGB CONC 35 g/dl (33.0-37.0); MEAN PLATELET VOLUME 9.5 fl (7.4-10.4); MONO # 0.7 K/mm3 (0.1-0.6); MONO % 7.2 % (1.7-9.3); PLATELET COUNT 205 K/mm3 (130-400); RED BLOOD COUNT 4.02 M/mm3 (4.20-5.60); REDCELL DISTRIBUTION WIDTH-CV 15.1 % (11.5-14.5)
[2024-09-10 07:42] LABS: CALCIUM 8.6 mg/dL (8.4-10.2); CREATININE, serum 1.02 mg/dL (0.72-1.25); POTASSIUM 3.4 mEq/L (3.5-4.5)
[2024-09-10] MEDS ORDERED: levETIRAcetam 500 MG TAB PO SCH (09:00)
[2024-09-10] MEDS ORDERED: Amiodarone 200 MG TAB PO SCH ×2 (09:00→15:30)
[2024-09-10] MEDS ORDERED: Atorvastatin 80 MG TAB PO SCH (09:00)
[2024-09-10] MEDS ORDERED: Fludrocortisone 0.1 MG TAB PO SCH (09:00)
[2024-09-10] MEDS ORDERED: Potassium Bicarbonate/Citrate 20 MEQ Effervescent TAB PO SCH ×2 (09:15→12:30)
--- NOTE | 2024-09-10 09:15 | NUR ---
Assessment complete. A/O x4. Denies pain. Urine dark chloe. Fall precautions in place. Neuro checks WNL. IVF infusing to LW as ordered- no s/s IV related complications.
--- NOTE | 2024-09-10 13:10 | NUR ---
D: Rabbit Fancier stopped by room on rounds. A: Pt was resting and content. Pt is originally from [place]. Pt has no needs right now. P: Rabbit Fancier informed pt that if he needed anything from the trailers and motor homes salesperson area to let his nurse know. Rabbit Fancier will follow up as needed.
--- NOTE | 2024-09-10 15:51 | NUR ---
Community Center Director met with patient to discuss discharge planning. Patient lives in [place] with his "lady friend", Carly (ph#[phone]) and her son, Jace. Patient sees Dr. De La Torre for primary care and gets his medications delivered from [facility]. Patient uses a walker for ambulation and stated things are "going okay" when it came to ADLS. Patient stated his son, Kevin is his DPOA. LEON discussed PT recommendation for SNF and patient is agreeable to this. Patient has been to [facility] before and that would be his first preference. Patient also was interested in [facility] SNF. LEON provided Medicare.gov list of SNF options to patient. LEON Rivas sent referral via secure email. LEON contacted patient's son, Kevin to provide update and he is in agreement with SNF. Kevin faxed DPOA-HC for patient which designates him. Discharge Plan: SNF
--- NOTE | 2024-09-10 16:12 | NUR ---
Coating Mixer Tender uploaded clinicals to [facility] for review.
--- NOTE | 2024-09-10 18:50 | NUR ---
Bedside report received from TIMA Schreiber. Pt resting in bed awake visiting with friend. Pt has no complaints at this time. Call light within reach and fall precautions in place.
--- NOTE | 2024-09-10 18:54 | NUR ---
IVF d/c'd per MD order. Denies pain or needs at this time. Laceration to left eye scabbed over. Fall precautions in place.
--- NOTE | 2024-09-10 19:17 | NUR ---
Bedside report given to TIMA Shields. Patient denies pain or needs at this time.
[2024-09-10] MEDS ORDERED: cefTRIAXone 1 G in Water For Injection,Sterile 10 ML IV SCH (20:00)
--- NOTE | 2024-09-10 21:37 | NUR ---
Pt awake in bed with no complaints. Shift assessment completed. VSS. Brown discoloration to BLE noted during assessment. Laceration to Lt eyebrow noted with scabbing. Pt denies pain rating 0/10. INT to Lt wrist patent with no swelling, redness, or drainage. Pt has no complaints at this time. Education provided about NPO status at midnight, pt verbalized understanding. Call light within reach and fall precautions in place.
[2024-09-11] VITALS (18 sets, daily range): BP systolic 116–187; BP diastolic 67–94; PULSE 59–78; TEMP 97.6–98.4
--- NOTE | 2024-09-11 00:42 | NUR ---
CAFE OPERATOR Eloisa notified of elevated BP 180s/90s. CAFE OPERATOR stated she would place new orders into emar.
[2024-09-11] MEDS ORDERED: hydrALAZINE 20 MG/ML 1 ML VIAL IV PRN (00:45)
[2024-09-11 08:20] LABS: BASO # 0.1 K/mm3 (0.0-0.2); BASO % 0.4 % (0.0-2.0); EOS # 0.3 K/mm3 (0.0-0.7); EOS % 2.8 % (0.0-4.0); GRAN # 8.7 K/mm3 (1.4-6.5); GRAN % 72.3 % (42.2-75.2); HEMATOCRIT 38.8 % (42.0-52.0); HEMOGLOBIN 13.1 g/dl (13.5-18.0); LYMPH % 16.5 % (20.0-51.0); MEAN CELL VOLUME 99 fl (80.0-100.0); MEAN CORPUSCULAR HEMOGLOBIN 34 pg (27-31); MEAN CORPUSCULAR HGB CONC 34 g/dl (33.0-37.0); MEAN PLATELET VOLUME 9.5 fl (7.4-10.4); MONO # 0.9 K/mm3 (0.1-0.6); MONO % 7.8 % (1.7-9.3); PLATELET COUNT 203 K/mm3 (130-400); RED BLOOD COUNT 3.91 M/mm3 (4.20-5.60); REDCELL DISTRIBUTION WIDTH-CV 15.6 % (11.5-14.5)
[2024-09-11 08:44] LABS: CALCIUM 8.7 mg/dL (8.4-10.2); CREATININE, serum 0.96 mg/dL (0.72-1.25); POTASSIUM 3.5 mEq/L (3.5-4.5)
[2024-09-11] MEDS ORDERED: Regadenoson 0.08 MG/ML 5 ML SYRINGE IV ONE (10:03)
--- NOTE | 2024-09-11 10:25 | NUR ---
PATIENT LAYING IN BED. HEAD TO TOE ASSESSMENT COMPLETED. MORNING MEDS GIVEN. CORI PAD CHANGED. SKIN IMPAIRMENT NOTED GLUTEAL CLEFT REGION AND BILATERAL LOWER EXTREMITIES. MEPALEX PLACED OVER SACRUM. DENIES PAIN AT THIS TIME. BED IN LOWEST POSITION. CALL LIGHT IN REACH.
[2024-09-11] MEDS ORDERED: Amoxicillin/Clavulanate K+ 875/125 MG TAB PO SCH (11:00)
--- NOTE | 2024-09-11 12:00 | NUR ---
PT LEFT FOR CHAN SCAN AROUND 0915 AND RETURNED AROUND 1115.
[2024-09-11] MEDS ORDERED: Potassium Bicarbonate/Citrate 20 MEQ Effervescent TAB PO SCH (13:15)
--- NOTE | 2024-09-11 13:37 | NUR ---
Rug Measurer spoke with Gabriel at [facility] and Pravin at [facility], both can accept patient. SW faxed updates to both including DPOA-HC, which SW also placed a copy of on patient's chart. SW contacted patient's son, Kevin to provide update and their preference is [facility] as they have been there before. LEON checked [employer] and authorization was approved for SNF. Discharge Plan; [facility]
[2024-09-11] MEDS ORDERED: TYLENOL 8 HR PO (14:45)
[2024-09-11] MEDS ORDERED: VITAMIND3 5000 PO (14:47)
--- NOTE | 2024-09-11 19:52 | NUR ---
CALL PLACED TO HOSPITALISTERNESTO. PATIENT BP 180 SYSTOLIC. TORB TO CONTINUE BP VIGILANCE GIVEN. NO NEW MEDICATION ORDERS GIVEN-SEE PROGRESS NOTES.
--- NOTE | 2024-09-11 20:29 | NUR ---
Agree with Maria Guadalupe, biomedical equipment technician. Pt sat up in chair for 5-10 minutes this evening. Had Theresa scan today. Fall preauctions in place.
--- NOTE | 2024-09-11 20:30 | NUR ---
UPON SHIFT ASSESSMENT, ROSAMARIA WAS AWAKE IN BED, CHEERFUL AND A&O X4. VS ARE WNL AND TELE IS NS PACED. BLLE STILL EXHIBITS DISCOLORATION D/T STASIS. BP'S ARE STILL HIGH, HOWEVER, HYDRALAZINE HAS BEEN DC'D. CALL PLACED TO HOSPITALIST-SEE NOTES. BED ALARM SOC[employer] LIGHT WITHIN REACH.
[2024-09-12] VITALS (8 sets, daily range): BP systolic 116–178; BP diastolic 67–81; PULSE 64–69; TEMP 98.4–98.7
[2024-09-12] MEDS ORDERED: diphenhydrAMINE 25 MG CAP PO PRN (03:30)
--- NOTE | 2024-09-12 06:29 | NUR ---
PATIENT STATES FOR THE PAST 3 NIGHTS (SINCE ADDMISSION), HE HAS HAD VIVID DREAMS THAT CAUSE HIM TO WAKE UP CONFUSED AND DISORIENTED. POSSIBLE HOSPITAL DELIRIUM EVOLVING.
[2024-09-12 06:49] LABS: BASO % 0.4 % (0.0-2.0); EOS # 0.3 K/mm3 (0.0-0.7); GRAN % 72.3 % (42.2-75.2); HEMATOCRIT 38.5 % (42.0-52.0); HEMOGLOBIN 12.7 g/dl (13.5-18.0); LYMPH # 1.8 K/mm3 (1.2-3.4); LYMPH % 15.8 % (20.0-51.0); MEAN CELL VOLUME 100 fl (80.0-100.0); MEAN CORPUSCULAR HEMOGLOBIN 33 pg (27-31); MEAN CORPUSCULAR HGB CONC 33 g/dl (33.0-37.0); MEAN PLATELET VOLUME 9.6 fl (7.4-10.4); MONO # 0.9 K/mm3 (0.1-0.6); MONO % 8.2 % (1.7-9.3); PLATELET COUNT 183 K/mm3 (130-400); RED BLOOD COUNT 3.86 M/mm3 (4.20-5.60); REDCELL DISTRIBUTION WIDTH-CV 15.4 % (11.5-14.5)
[2024-09-12 07:13] LABS: CALCIUM 8.7 mg/dL (8.4-10.2); CREATININE, serum 0.91 mg/dL (0.72-1.25); POTASSIUM 3.9 mEq/L (3.5-4.5)
[2024-09-12] MEDS ORDERED: Carboxymethylcellulose PF Ophth 0.4 ML DROPPERETTE OP PRN (08:00)
--- NOTE | 2024-09-12 08:00 | NUR ---
PATIENT SITTING BACK IN BED. HEAD TO TOE ASSESSMENT COMPLETED. DENIES PAIN AT THIS TIME. MORNING MEDS GIVEN. BILATERAL REDDNESS AROUND THE EYES. NO DRAINAGE. PT REPORTS MILD ITCHING. NO REDNESS OR ITCHING REPORTED OR VISIBLE IN OTHER REGIONS. CLEANSED EYELIDS AND FACE WITH CLEAN WASH RAG. MED AND EYEDROPS ADMINISTERED. BED IN LOWEST POSITION, CALL LIGHT IN REACH. NONSKID SOCKS ON, BED ALARM ON.
--- NOTE | 2024-09-12 09:30 | NUR ---
PATIENT ATTEMPTED TO GET OUT OF BED. CONFUSED AND DISORIENTED. HE DID NOT KNOW WHERE HE WAS AND BELIEVED TO BE SOMEWHERE ELSE. REMINDED PATIENT WHERE HE WAS AND THE REASON FOR BEING IN THE HOSPITAL. REDDNESS AND IRRITAION NOTED AT THE BASE OF NECK. PATIENT HAS KYPHOSIS AND FACIAL HAIR MAY BE RUBBING. WILL SHAVE PATIENT.
[2024-09-12] MEDS ORDERED: TYLENOL 325MG325 MG PO (10:33)
[2024-09-12] MEDS ORDERED: ZYVOX 600MG600 MG PO (10:35)
[2024-09-12] MEDS ORDERED: Potassium Bicarbonate/Citrate 20 MEQ Effervescent TAB PO ONE (11:00)
--- NOTE | 2024-09-12 14:52 | NUR ---
Patient transferred to [facility], per [facility] staff at 1315. Report called to [phone] but no answer. Report called to LYLE Collins.
--- NOTE | 2024-09-12 15:48 | NUR ---
Associate Professor Of Musicology attended clinical rounds with the team and patient is ready for discharge to [facility] today. SW met with patient to present and review the IM. Patient requested this be done with patient's son, Kevin. SW contacted Kevin to review IM over the phone. Kevin verbalized understanding and was in agreement. SW placed form in chart and included copy in patient's discharge folder. Pravin at [facility] accepted and transport time was set for 1300. SW sent discharge orders via secure email. Discharge Plan: [facility] today.
[2024-09-12] MEDS ORDERED: Linezolid 600 MG TAB PO SCH (21:00)
== END 2024-09-12 15:15 | DRG 689 ==
LOC: COL.ER 13:46 → MEDICAL 20:31
PROVIDERS: Emergency Medicine; Nurse Practitioner Family; Physician Assistant; ADMIT Internal Medicine
DX: N39.0 Urinary tract infection, site not specified (principal); I21.4 Non-ST elevation (NSTEMI) myocardial infarction; E87.0 Hyperosmolality and hypernatremia; I16.1 Hypertensive emergency; N17.9 Acute kidney failure, unspecified; E87.3 Alkalosis; G25.9 Extrapyramidal and movement disorder, unspecified; G47.33 Obstructive sleep apnea (adult) (pediatric); Z85.46 Personal history of malignant neoplasm of prostate; M40.209 Unspecified kyphosis, site unspecified; I95.1 Orthostatic hypotension; E78.5 Hyperlipidemia, unspecified; I27.20 Pulmonary hypertension, unspecified; I87.2 Venous insufficiency (chronic) (peripheral); E87.6 Hypokalemia; I48.0 Paroxysmal atrial fibrillation; D63.1 Anemia in chronic kidney disease; I12.9 Hypertensive chronic kidney disease with stage 1 through stage 4 chronic kidney disease, or unspecified chronic kidney disease; N18.30 Chronic kidney disease, stage 3 unspecified; N40.0 Benign prostatic hyperplasia without lower urinary tract symptoms; G30.1 Alzheimer's disease with late onset; F02.80 Dementia in other diseases classified elsewhere, unspecified severity, without behavioral disturbance, psychotic disturbance, mood disturbance, and anxiety; M54.9 Dorsalgia, unspecified; G89.29 Other chronic pain; B95.2 Enterococcus as the cause of diseases classified elsewhere; R00.1 Bradycardia, unspecified; E11.22 Type 2 diabetes mellitus with diabetic chronic kidney disease
CPT/HCPCS: A9500-JZ; J0360; J0696; J1650; J2785; J7030